=== PATIENT | female | born 1995 | race Caucasian/White ===

== ENCOUNTER 2017-08-27 12:02 | Emergency (ER) | payer BC, OTHER ==
[~2017-08-27] VITALS: Ht 165.1 cm; Wt 74.3 kg
[~2017-08-27 12:02] MED LIST: ALBUAER2 INH; CLR10 PO; SNG10 PO
[2017-08-27 12:16] VITALS: TEMP 36.8; Ht 165.1 cm; Wt 74.3 kg
[2017-08-27 13:04] LABS: HEMATOCRIT 31.7 % (37-47); MEAN CORPUSCULAR HEMOGLOBIN 29.1 pg (25-34); MEAN PLATELET VOLUME 11.9 fL (7.4-10.4); PLATELET COUNT 153 K/uL (130-400); RED BLOOD COUNT 3.82 M/uL (4.2-5.4); WHITE BLOOD COUNT 6.38 K/uL (4.8-10.8)
[2017-08-27 13:30] LABS: ALT/SGPT 16 U/L (12-78); BLOOD UREA NITROGEN 5 mg/dl (7-18); BUN/CREATININE RATIO 9.8 (10-20); CALCIUM 8.7 mg/dl (8.5-10.1); CARBON DIOXIDE 25 mmol/L (21-32); CHLORIDE 109 mmol/L (98-107); CREATININE 0.53 mg/dl (0.60-1.20); GLUCOSE 88 mg/dl (70-99); POTASSIUM 3.3 mmol/L (3.5-5.1); SODIUM 141 mmol/L (136-145)
[2017-08-27 13:33] LABS: ALB/GLOB RATIO 1.2 (0.9-2); ALKALINE PHOSPHATASE 93 U/L (45-117); AST/SGOT 14 U/L (15-37)
--- NOTE | 2017-08-27 13:58 | DIAGNOSTIC IMAGING REPORT ---
TRANS VAG-FEMALE PELVIS HISTORY: Pelvic pain Possible ectopic , HCG at 5000 COMPARISON: None. FINDINGS: Uterus: Midline location with maximum linear dimension of 11.9 cm. Endometrial stripe: 11 mm Right ovary: 4.5 cm maximum linear dimension with a 2.7 cm corpus luteum cyst. Normal vascular flow Left ovary: 3.4 cm maximum dimension with several follicular cysts. Normal vascular flow. Miscellaneous:Probable early intrauterine gestational sac. Probable early pole. Size is too small for dates or other evaluation. IMPRESSION: 1. Probable early intrauterine gestational sac. 2. Follow-up at a later date is recommended to confirm viability and heartbeat. 3. Bilateral ovarian follicular cysts as well as corpus luteum cyst. The above report was generated using voice recognition software. It may contain grammatical, syntax or spelling errors. Electronically signed by: Nathan White M.D. 08/27/2017 1:57 PM Dictated Date/Time: 08/27/2017 1:52 PM
--- NOTE | 2017-08-27 14:14 | History and Physical ---
History & Physical Date & Time of Service: Aug 27, 2017 at 12:59 Chief Complaint: Abdominal Pain Primary Care Physician: No Doctor, Assigned History of Present Illness Source: patient, family Patient is a 21 y/o at 5 weeks 3 days via LMP of 07/20/17 comes in left sided low abdominal pain that began yesterday evening and progressively got worse. She has had cramping over the past week and had a positive home test at home over the weekend. She denies any nausea/vomiting, fevers , chills or syncope. She was seen at [facility] this morning where a transvaginal US showed a normal sized uterus measuring 7.0 x 5.6 x 6.6 cm and a thickened endometrium at 2.6 cm. No intrauterine seen. A small amount of fluid in the cul de sac. The right ovary was normal size measuring 4.6 x 2.5 x 2.9 cm with a presumed corpus luteum measuring 2.2 cm. The left ovary was not visualized and no obvious left adnexal mass seen. Her beta HCG was 5481. She was then transferred here for further evaluation an treatment to the high suspicion of an ectopic . On arrival her pain is slightly worse and located in her left lower abdomen. Denies any bleeding at this time. Social History Smoking Status: Current Every Day Smoker Smokeless Tobacco Use: No Alcohol Use: occasionally Drug Use: none Marital Status: single Housing status: lives with family Occupational Status: employed Immunizations History of Influenza Vaccine: Unknown History of Tetanus Vaccine?: Unknown History of Pneumococcal: Unknown History of Hepatitis B Vaccine: Unknown Multi-Drug Resistant Organisms History of MDRO: No Allergies Coded Allergies: Macrolides (Unverified Allergy, Mild, 12/09/09) Penicillins (Unverified Allergy, Mild, 12/09/09) Amoxicillin (Unverified Allergy, Unknown, unk, 08/27/17) Home Medications No Active Prescriptions or Reported Meds Review of Systems Constitutional: No fever, No chills, No sweats, No weight loss, No weakness, No fatigue, No problem reported Respiratory: No cough, No sputum, No wheezing, No shortness of breath, No dyspnea on exertion, No dyspnea at rest, No hemoptysis, No problem reported Cardiovascular: No chest pain, No orthopnea, No PND, No edema, No claudication , No palpitations, No problem reported Abdomen: + pain (Left lower abdominal pain) Genitourinary - Female: + , No dysuria, No urinary frequency, No urinary urgency, No urinary incontinence, No urinary retention, No hematuria, No dysmenorrhea, No menorrhagia, No metrorrhagia, No rash, No vaginal bleeding, No vaginal discharge, No vaginal itching, No vulvodynia, No problem reported Neurologic: No memory loss, No paralysis, No weakness, No numbness/tingling, No vertigo, No balance problems, No problem reported Hematologic / Lymphatic: No abnormal bleeding/bruising, No clotting problems, No swollen lymph nodes, No night sweats, No problem reported Integumentary: No rash, No itch, No new/changing skin lesions, No color change , No bleeding, No problem reported Physical Exam Vital Signs Date Time Temp Pulse Resp B/P (MAP) Pulse Ox O2 Delivery O2 Flow Rate FiO2 08/27/17 12:17 83 08/27/17 12:16 36.8 90 18 123/97 99 Room Air General Appearance: WD/WN Head: normocephalic, atraumatic Respiratory/Chest: chest non-tender, lungs clear Cardiovascular: regular rate, rhythm Abdomen/GI: normal bowel sounds, soft, + tenderness (left lower abdominal pain , no gaurding or rebound) Extremities/Musculoskelatal: normal inspection Neurologic/Psych: alert, oriented x 3 Skin: normal color, warm/dry, no rash Diagnostics Laboratory Results Test 08/27/17 12:25 White Blood Count 6.38 Red Blood Count 3.82 Hemoglobin 11.1 Hematocrit 31.7 Mean Corpuscular Volume 83.0 Mean Corpuscular Hemoglobin 29.1 Mean Corpuscular Hemoglobin Concent 35.0 RDW Standard Deviation 37.1 RDW Coefficient of Variation 12.2 Platelet Count 153 Mean Platelet Volume 11.9 Sodium Level 141 Potassium Level 3.3 Chloride Level 109 Carbon Dioxide Level 25 Anion Gap 7.0 Blood Urea Nitrogen 5 Creatinine 0.53 Est Creatinine Clear Calc Drug Dose 166.6 Estimated GFR () > 150.0 Estimated GFR (Non- 133.8 BUN/Creatinine Ratio 9.8 Random Glucose 88 Calcium Level 8.7 Total Bilirubin 0.3 Aspartate Amino Transferase (AST) 14 Alanine Aminotransferase (ALT) 16 Alkaline Phosphatase 93 Total Protein 6.8 Albumin 3.7 Globulin 3.1 Albumin/Globulin Ratio 1.2 Human Chorionic Gonadotropin, Quant 4258 Diagnostic Radiology TRANS VAG-FEMALE PELVIS HISTORY: Pelvic pain Possible ectopic , HCG at 5000 COMPARISON: None. FINDINGS: Uterus: Midline location with maximum linear dimension of 11.9 cm. Endometrial stripe: 11 mm Right ovary: 4.5 cm maximum linear dimension with a 2.7 cm corpus luteum cyst. Normal vascular flow Left ovary: 3.4 cm maximum dimension with several follicular cysts. Normal vascular flow. Miscellaneous:Probable early intrauterine gestational sac. Probable early pole. Size is too small for dates or other evaluation. IMPRESSION: 1. Probable early intrauterine gestational sac. 2. Follow-up at a later date is recommended to confirm viability and heartbeat. 3. Bilateral ovarian follicular cysts as well as corpus luteum cyst. Impression Assessment and Plan (1) Abdominal pain (2) Early stage of Assessment & Plan: Ultrasound today showed early IUP will need to repeat ultrasound in 2 weeks for viability. Patient agreeable. Has an appointment with us in 2 days already scheduled. VTE Prophylaxis VTE Risk Assessment Done? Y/N: Yes Risk Level: Low Given or contraindicated: Treatment not indicated Social Service Consult None Apply Note Total Time: Critical Care 30 - 74 minutes Problem Qualifiers (1) Abdominal pain: Abdominal location: left lower quadrant Qualified Codes: R10.32 - Left lower quadrant pain
--- NOTE | 2017-08-27 14:18 | Discharge Instructions ---
Discharge Instructions Date of Service Aug 27, 2017. Admission Reason for Admission: Abdominal Pain Discharge Discharge Diagnosis / Problem: Early Discharge Goals Goal(s): Continuing OB care Activity Recommendations Activity Limitations: per Instructions/Follow-up section . Instructions / Follow-Up Instructions / Follow-Up ACTIVITY RECOMMENDATIONS: See Labor Sheet. SPECIAL CARE INSTRUCTIONS: Call Doctor if: * Severe cramping or pain. * Bleeding * Fever >100.4 degrees F * Pain not relieved by routine measures or pain medication ordered. FOLLOW UP VISIT: Patient is to be off of work today and tomorrow 08/27/17-08/28/17. Follow[facility]up Visit with:[facility] When: 08/29/17 Current Hospital Diet Patient's current hospital diet: Discharge Diet Recommended Diet: Regular Diet Pending Studies Studies pending at discharge: no Medical Emergencies . Who to Call and When: Medical Emergencies: If at any time you feel your situation is an emergency, please call 911 immediately. . Non-Emergent Contact Non-Emergency issues call your: Primary Care Provider, Process Manufacturing Engineer . . "Provider Documentation" section prepared by Ousmane Pemberton. . VTE Core Measure Inpt VTE Proph given/why not?: Treatment not indicated
[2017-08-27 15:30] VITALS: BP 106/58; PULSE 85; O2SAT 100
== END 2017-08-27 15:34 | disposition home or self-care (01) ==
LOC: EDBD 12:02 → C.EDA 12:05
DX: R10.32 Left lower quadrant pain (principal); O26.891 Other specified pregnancy related conditions, first trimester; O99.331 Smoking (tobacco) complicating pregnancy, first trimester; F17.200 Nicotine dependence, unspecified, uncomplicated; Z3A.01 Less than 8 weeks gestation of pregnancy

== ENCOUNTER 2023-12-26 11:49 | Inpatient (IN) ==
--- NOTE | 2023-12-26 12:17 | Emergency Department Note ---
Impression & Plan Depression with suicidal ideation, Hyperthyroidism, Thrombocytopenia, Leukocytopenia, unspecified ED Provider Note NAME: YAZ SANTANA AGE: 28 SEX: F : 1995 ARRIVES VIA: Walk-In INFORMANT: Patient, ED PROVIDER(S): Bala Davison DO CHIEF COMPLAINT: Mental health evaluation HPI: The patient is a 28-year-old female who presented to the emergency department for mental health evaluation. The patient has been having problems with depression and suicidal ideation for quite some time. These issues have seemed to have gotten much worse especially over the last few weeks. She lost primary custody of her child. She used to live with her boyfriend and has no current residence as she broke up with her boyfriend. She was living with her mother for short period of time but now that is no longer a viable option. The patient denies having any fever or chills. She does have a history of Graves' disease but is not taking any medications for this. The patient states that last evening she was contemplating hurting herself by jumping off of a merlin. The patient denies any recent drug or alcohol use. ROS: See above HPI for pertinent positives & negatives. A total of 10 systems reviewed and were otherwise negative. PAST MEDICAL HISTORY: See Below PAST SURGICAL HISTORY: See Below FAMILY HISTORY: See Below SOCIAL HISTORY: See Below HOME MEDICATIONS: See Below ALLERGIES: See Below VITALS: See Below PHYSICAL EXAMINATION: GENERAL: The patient is awake and alert. The patient is anxious and tearful. EYES: The conjunctivae are clear. The pupils are round and reactive. EARS, NOSE, MOUTH AND THROAT: The nose is without any evidence of any deformity. NECK: The neck is nontender and supple. RESPIRATORY: Normal respiratory effort is noted there is no evidence of wheezing rhonchi or rales CARDIOVASCULAR: Regular rate and rhythm noted there no murmurs rubs or gallops normal S1 normal S2. GASTROINTESTINAL: The abdomen is soft. Abdomen is nontender. MUSCULOSKELETAL/EXTREMITIES: There is no evidence of gross deformity full range of motion is noted in the hips and shoulders. SKIN: There is no obvious evidence of any rash. There are no petechiae, pallor or cyanosis noted. NEUROLOGIC: Patient is awake alert and oriented x3 strength is symmetric patellar reflexes are 2+ bilaterally PSYCH: The patient makes good eye contact mostly evaluation. Her affect is very flat. She is tearful at times. She still admitting to suicidal ideation with a plan to hurt herself. MEDICAL DECISION MAKING: The patient is a 28-year-old female who presented to the emergency department for mental health evaluation. The patient's been having many stressors recently and this culminated in the patient having suicidal ideation with a plan to hurt herself last evening. I discussed patient's laboratory results with her. She was medically cleared in the emergency department although she was found to have abnormalities with her thyroid function which does fit with her past medical history and her medication noncompliance. She was also found of thrombocytopenia and a low white blood cell count. I am unsure the cause of this. The patient does not have any infectious process as far as we can tell. She has no history of IV drug abuse. She may require further laboratory workup including tickborne testing as well as possible other viral testing. I discussed this with the patient. I also discussed this with the liaison from [facility] Further testing can be done from [facility] if needed. Ultimately the patient was excepted on [facility] for inpatient management. The patient was agreeable with this plan. I did sign the patient's 201. Triage Nursing notes reviewed. Prior medical records reviewed Vital Signs: reviewed and remarkable for tachycardia. Differential diagnosis: Mood disorder, infection, hypoglycemia, electrolyte abnormalities, cardiac sources, intracerebral event, toxicologic, trauma, neurologic, as well as other pathologies. ER treatment provided: See below Diagnostics interpreted by me: ECG: none Laboratory studies: As stated above and show below. Imaging studies: See below. Consultation(s): I discussed this patient's condition with the emergency department mental health manager rn case Past Med/Surg History Medical History Graves disease Social History Smoking Status: Current every day smoker Tobacco Type: Cigarettes Preferred Language: Djiboutian Feels Safe at Home: Yes Gender Identity: Female Allergies Allergies Allergy/AdvReac Type Severity Reaction Status Date / Time amoxicillin Allergy Intermediate RASH Verified 12/26/23 16:44 apple Allergy Intermediate GI SYMPTOMS Verified 12/26/23 16:44 erythromycin base Allergy Unknown RASH Verified 12/26/23 16:44 gluten Allergy Unknown patient Verified 12/26/23 16:44 has celiac disease Home Meds Home Medications Medication Instructions Recorded Confirmed Multivit/Min/Iron/Fol Ac/Pren 1 tab PO DAILY #0 tabs 04/20/18 ( Vitamin) methimazole 10 mg tablet mg 12/26/23 Previous Rx's Medication Instructions Recorded Nitrofurantoin Monohyd Macrocr 100 mg PO BID@0400,1600 #14 caps 04/20/18 (Nitrofurantoin Monohydrat) Results & Data (ED) Vital Signs Vital Signs - 24 hr 12/26/23 11:55 12/26/23 14:12 Temperature 36.3 C L Temperature Source Temporal Artery Scan Pulse Rate 116 H Pulse Rate [Finger] 114 H Respiratory Rate 20 18 Respiratory Effort / Characteristics Non-Labored Spontaneous Respiratory Depth Normal Blood Pressure 147/89 H Blood Pressure [Right Arm] 117/62 Blood Pressure Mean 108 Blood Pressure Mean [Right Arm] 80 Blood Pressure Position [Right Arm] Sitting Pulse Oximetry 100 98 Oxygen Delivery Method Room Air Room Air Sepsis Recent Fever Within 48 Hours No Sepsis New/Unexplained Change in Mental Status N/A Sepsis Action Taken by Nursing No Action Required Home Medications Current Medication List: was personally reviewed by me Laboratory Data Attestation: I reviewed the patient's lab results. 12/26/23 12:17 12/26/23 12:17 Lab Results 12/26/23 12/26/23 12/26/23 Range/Units 12:02 12:17 Unknown WBC 2.28 L (4.8-10.8) K/ul RBC 5.13 (4.20-5.40) M/uL Hgb 13.6 (12.0-16.0) g/dl Hct 39.8 (37.0-47.0) % MCV 77.6 L (80.0-100.0) fL MCH 26.5 (25.0-34.0) pg MCHC 34.2 (32.0-36.0) g/dL RDW Std Deviation 37.3 (36.4-46.3) fL RDW Coeff of Shirley 13.3 (11.5-14.5) % Plt Count 94 L (130-400) K/uL MPV 12.9 H (9.4-12.4) fL Immature Gran % (Auto) 0.4 % Neut % (Auto) 40.4 % Lymph % (Auto) 43.4 % [place] % (Auto) 13.2 % Eos % (Auto) 2.2 % Baso % (Auto) 0.4 % Neut # (Auto) 0.92 L* (1.40-6.50) K/uL Lymph # (Auto) 0.99 L (1.20-3.40) K/uL [place] # (Auto) 0.30 (0.11-0.59) K/uL Eos # (Auto) 0.05 (0.00-0.50) K/uL Baso # (Auto) 0.01 (0.00-0.20) K/uL Immature Gran # (Auto) 0.01 (0.01-0.20) K/uL Platelet Estimate Decreased L (Normal) Giant Platelets 1+ Tear Drop Cells 1+ Echinocytes 1+ Sodium 137 (136-145) mmol/L Potassium 4.0 (3.5-5.1) mmol/L Chloride 105 (98-107) mmol/L Carbon Dioxide 26 (21-32) mmol/L Anion Gap 6 (3-11) BUN 6 (6-23) mg/dl Creatinine 0.49 L (0.6-1.2) mg/dl Est Cr Clr Drug Dosing 142.1 ml/min Est GFR ( Amer) > 150.0 ml/min Est GFR (Non-Af Amer) 130.7 ml/min BUN/Creatinine Ratio 12.2 (10-20) Glucose 118 H (70-99(Fasting)) mg/dl Calcium 9.2 (8.6-10.3) mg/dl Total Bilirubin 0.3 (0.2-1.0) mg/dl AST 32 (13-39) U/L ALT 26 (7-52) U/L Alkaline Phosphatase 128 H (34-104) U/L Total Protein 7.0 (6.0-8.3) gm/dl Albumin 4.1 (3.4-5.0) gm/dl Globulin 2.9 (2.5-4.0) gm/dl Albumin/Globulin Ratio 1.4 (0.9-2) TSH < 0.010 L (0.300-4.500) uIu/ml Free T4 3.42 H (0.61-1.60) ng/dl HCG, Qual Negative (Negative) Urine Color Dark Yellow Urine Appearance Cloudy A (Clear) Urine pH 7.0 (4.5-7.5) Ur Specific Clemons 1.013 (1.000-1.030) Urine Protein Negative (Negative) Urine Glucose (UA) Negative (Negative) Urine Ketones Negative (Negative) Urine Blood 2+ H (Negative) Urine Nitrite Negative (Negative) Urine Bilirubin Negative (Negative) Urine Urobilinogen Negative (Negative) Ur Leukocyte Esterase Negative (Negative) Urine WBC (Auto) 5-10 H (0-5) /hpf Urine RBC (Auto) 0-4 (0-4) /hpf U Hyaline Cast (Auto) 1-5 (0-5) /lpf U Epithel Cells (Auto) >30 H (0-5) /lpf Urine Bacteria (Auto) Negative (Negative) Salicylates < 3.0 L (3.0-30) mg/dl Urine Opiates Screen Neg (Neg) Ur Methadone, Qual Neg (Neg) Acetaminophen < 3 L (10-30) ug/ml Urine Barbiturates Neg (Neg) Ur Phencyclidine (PCP) Neg (Neg) U Amphetamin/Meth Scrn Neg (Neg) MDMA (Ecstasy) Screen Neg (Neg) U Benzodiazepines Scrn Neg (Neg) Ur Cocaine Metabolite Neg (Neg) U Marijuana (THC) Screen Neg (Neg) Ethyl Alcohol mg/dL < 10.0 (<10.0) mg/dl SARS-CoV-2, RNA, NAAT NEGATIVE (NEGATIVE) Administered Medications Nicotine (Nicotine 14 Mg/24 Hr Patch) 14 mg TD QAM KAYLA Stop: 01/25/24 13:29 Last Admin: 12/26/23 13:33 Dose: 14 mg Documented By: CC Discharge Plan Visit Data Chief Complaint: Mental Health Evaluation Stated Complaint: [facility] ED Provider: Bala Davison Discharge Problem: Depression with suicidal ideation, Hyperthyroidism, Thrombocytopenia, Leukocytopenia, unspecified Patient Disposition: Transfer Behavioral Health Fac Forms Stand Alone Forms: My [facility], Suicide Prevention Resources Prescriptions Prescriptions: No Action Multivit/Min/Iron/Fol Ac/Pren ( Vitamin) tablet 1 tab PO DAILY Qty: 0 Nitrofurantoin Monohyd Macrocr (Nitrofurantoin Monohydrat) 100 MG capsule 100 mg PO BID@0400,1600 Qty: 14 0RF methimazole 10 mg tablet Referrals Referrals: PCP,NO [Primary Care Provider] - Discharge Problem: Leukocytopenia, unspecified Qualifiers: Leukopenia type: unspecified Qualified Code(s): D72.819 - Decreased white blood cell count, unspecified
[2023-12-26 12:55] LABS: Appearance Urine Cloudy (Clear); Bacteria Urine Automated Negative (Negative); Bilirubin Urine Negative (Negative); Blood Urine 2+ (Negative); Color Urine Dark Yellow; Epithelial Cell Urine Auto >30 /lpf (0-5); Glucose Urine UA Negative (Negative); Ketones Urine Negative (Negative); Leukocyte Esterase Urine Negative (Negative); Nitrite Urine Negative (Negative); Protein Urine Negative (Negative); RBC Urine Automated 0-4 /hpf (0-4); Specific Gravity Urine 1.013 (1.000-1.030); Urobilinogen Urine Negative (Negative)
[2023-12-26 13:24] LABS: Pregnancy Test, Serum Negative (Negative)
[2023-12-26 13:25] LABS: Amphetamines+Metham, Urine Neg (Neg); Barbiturates, Urine Neg (Neg); Benzodiazepine, Urine Neg (Neg); Cocaine, Urine Neg (Neg); MDMA (Ecstacy), Urine Neg (Neg); Marijuana, Urine Neg (Neg); Methadone, Urine Neg (Neg); Opiate, Urine Neg (Neg); Phencyclidine, Urine Neg (Neg)
[2023-12-26 13:27] LABS: Alanine Aminotransferase 26 U/L (7-52); Albumin Globulin Ratio 1.4 (0.9-2); Albumin Level 4.1 gm/dl (3.4-5.0); Alkaline Phosphatase 128 U/L (34-104); Anion Gap 6 (3-11); Aspartate Aminotransferase 32 U/L (13-39); BUN Creatinine Ratio 12.2 (10-20); Bilirubin,Total 0.3 mg/dl (0.2-1.0); Blood Urea Nitrogen 6 mg/dl (6-23); Calcium 9.2 mg/dl (8.6-10.3); Carbon Dioxide 26 mmol/L (21-32); Chloride 105 mmol/L (98-107); Creatinine Clr Calc Pharmacy 142.1 ml/min; Est GFR (African American) > 150.0 ml/min; Est GFR (Non-African American) 130.7 ml/min; Globulin 2.9 gm/dl (2.5-4.0); Glucose 118 mg/dl (70-99(Fasting)); Sodium 137 mmol/L (136-145)
[2023-12-26 13:33] LABS: Acetaminophen < 3 ug/ml (10-30); Salicylate < 3.0 mg/dl (3.0-30)
[2023-12-26] MEDS: NICOTINE 14 MG/24 HR PATCH TD SCH (13:33)
[2023-12-26 13:43] LABS: Thyroid Stimulating Hormone < 0.010 uIu/ml (0.300-4.500)
[2023-12-26 13:44] LABS: Hematocrit (blood only) 39.8 % (37.0-47.0); Hemoglobin 13.6 g/dl (12.0-16.0); Mean Corpuscular Hemoglobin 26.5 pg (25.0-34.0); Mean Corpuscular Hgb Conc 34.2 g/dL (32.0-36.0); Mean Corpuscular Volume 77.6 fL (80.0-100.0); Mean Platelet Volume 12.9 fL (9.4-12.4); Platelet Count 94 K/uL (130-400); RDW Coefficient of Variation 13.3 % (11.5-14.5); RDW Standard Deviation 37.3 fL (36.4-46.3); Red Blood Count 5.13 M/uL (4.20-5.40); White Blood Count 2.28 K/ul (4.8-10.8)
[2023-12-26 14:00] LABS: Echinocytes 1+; Giant Platelets 1+; Platelet Estimate Decreased (Normal); Tear Drop Cells 1+
[2023-12-26 14:12] LABS: Basophils # (auto) 0.01 K/uL (0.00-0.20); Basophils % (auto) 0.4 %; Eosinophils # (auto) 0.05 K/uL (0.00-0.50); Eosinophils % (auto) 2.2 %; Immature Granulocytes # (auto) 0.01 K/uL (0.01-0.20); Immature Granulocytes % (auto) 0.4 %; Lymphocytes # (auto) 0.99 K/uL (1.20-3.40); Lymphocytes % (auto) 43.4 %; Monocytes % (auto) 13.2 %; Neutrophils # (auto) 0.92 K/uL (1.40-6.50); Neutrophils % (auto) 40.4 %
[2023-12-26 14:19] LABS: T4 Free Thyroxine 3.42 ng/dl (0.61-1.60)
[2023-12-26] MEDS ORDERED: ACETAMINOPHEN 325 MG TAB PO PRN (18:05)
[2023-12-26] MEDS ORDERED: BISMUTH SUBSALICYLATE LIQD 236 ML PO PRN (18:05)
[2023-12-26] MEDS ORDERED: hydrOXYzine HCl 25 MG TAB PO PRN ×2 (18:05)
[2023-12-26] MEDS ORDERED: SODIUM CHLORIDE 0.65% NA SOLN 45 ML (OCEAN) PRN (18:05)
[2023-12-26] MEDS ORDERED: ALUMINUM/MAGNESIUM SUSP 30 ML UDC PO PRN (18:05)
[2023-12-26] MEDS ORDERED: MAGNESIUM HYDROXIDE SUSP 30 ML UDC PO PRN (18:05)
[2023-12-26] MEDS: NICOTINE POLACRILEX 2 MG GUM MT PRN (18:29)
--- OUTSIDE RECORDS SUMMARY | 2023-12-27 12:11 | External Medical Summary | Summary of Care ---
Author Name Unknown Organization [facility] Address [address] [place] [address] Phone [phone] Care Team Providers Care Customer Success Manager Name Role Phone Unavailable Primary Care Provider Unavailabl e Encounter Details Date Type Department Care Team (Late st Contact Info) Description 11/08/2023 7:20 AM EST Telemedicine [facility] [address] [place] [address] Hansa Lee MD [address] [place] [address] Upper respiratory tract infection, unspecified type*; Hyperthyroidism; Other allergic rhinitis; Mild persistent asthma without complication; Tobacco use; Celiac disease Allergies Active Allergy Reactions Criticality Noted Date Comments Amoxicillin 10/13/2001 rash Erythromycin Base 09/02/2007 vomiting Gluten 10/27/2013 Pt has celiac disease documented as of this encounter (statuses as of 11/08/2023) Medications Medication Sig Dispensed Refills Start Date End Date Status Plus 27-1 MG Oral TabletIndications:Enc ounter for supervision of other normal in first trimester Take 1 Tablet by mouth in the morning. 100 Tablet 3 04/16/2023 Active Iron-Vitamin C 65-125 MG Oral Tablet (Vitron C)Indications:Antepar maty anemia complicating Take 1 Tablet by mouth in the morning and 1 Tablet before bedtime. 60 Tablet 6 04/16/2023 Active methIMAzole 10 MG Oral Tablet (Tapazole)Indications :Hyperthyroidism 2.5 tab daily 75 Tablet 5 07/09/2023 Active documented as of this encounter (statuses as of 11/08/2023) Active Problems Problem Noted Date Diagnosed Date Hyperthyroidism 05/21/2023 Cigarette nicotine dependence without complicati on 05/21/2023 Tobacco use 05/16/2023 Asthma, mild persistent 01/22/2011 Other allergic rhinitis 08/26/2002 Overview: ICD-10 update of inactive term Polycystic ovaries documented as of this encounter (statuses as of 11/08/2023) Resolved Problems Problem Noted Date Diagnosed Date Resolved Date Family history of autism 04/17/2023 Overview: Patient's daughter is on the autism spectrum. Also has macrocephaly and a heart murmur (no structural defect). Patient states that they never pursued genetic testing. Declines genetic counseling at this time. Last Assessment & Plan: Patient aware to reach out if she desires genetic counseling referral. Antepartum anemia complicating 04/16/2023 05/03/2023 Overview: Hgb 9.7 at NOB. Recommend iron BID Last Assessment & Plan: CONSIDERATIONS: Severe maternal anemia (hemoglobin levels below 6 to 7 g/dl) is associated with oligohydramnios, cerebral vasodilation, delivery, miscarriage, growth restriction, nonreassuring heart rate patterns, and stillbirth. There is also an increased risk for maternal . RECOMMENDATIONS: If hemoglobin is below 11 g/dl during first and third trimesters or less than10.5 g/dL in 2nd trimester, we recommend anemia studies to assess serum ferritin, iron, iron binding capacity, transferritin saturation, and hemoglobin electrophoresis. If iron-deficiency anemia is confirmed, then we recommend iron supplementation with oral (preferred) or parenteral therapy (if recommended by blood conservation program after oral therapy has failed) as indicated to keep hemoglobin level above 11 g/dl during . Oral iron should be taken with orange juice. If anemia studies do not reflect iron deficiency anemia we recommend checking TSH, B12 and folate levels and referral to a surgical technology instructor. If hemoglobin levels are below 8 g/dl, we recommend Maternal Medicine ultrasound for growth every 4 weeks after 24 weeks. Consider a blood transfusion if hemoglobin levels fall below 6 g/dL. ([employer] Bulletin Number 95, May,). Consider Venofer transfusions if patient labs supportive of iron deficiency anemia with dosing of 300 mg IV weekly x 3 weeks Health counseling 04/12/2023 05/16/2023 Overview: Problem Action Taken Date entered Entered by Date resolved Smoking/tobacco abuse Smoking Education 04/12/2023 Tsering Eagle RN 04/12/2023 Problem Action Taken Date entered Entered by Date resolved 1st trimester education Education given 04/12/2023 Tsering Eagle RN 04/12/2023 History of depression 04/12/2023 05/03/2023 Overview: Denies current anxiety or depression symptoms. Last Assessment & Plan: ANXIETY AND DEPRESSION CONSIDERATIONS: Untreated maternal anxiety and depression may be associated with an increased risk of multiple poor obstetrical outcomes including miscarriages, low weight, and delivery. Women with a history of anxiety or depression are at risk for recurrence both during and/or the period. Studies of first-trimester SSRI exposure do not demonstrate consistent data to support an increased risk for structural malformations. Anti-anxiety or depression medications have been associated with transient effects (withdrawal syndrome). RECOMMENDATIONS: Mental illness can and should be treated during when the benefits of treatment outweigh potential risks. Referral to behavioral health services as clinically indicated. History of marijuana use 04/12/2023 Overview: Last use 3 years ago. Medical marijuana for post depression. Patient denies any illicit drug use. History of genetic counseling 04/12/2023 05/03/2023 Overview: First complicated by positive Quad screen for Trisomy 21. Baby did not have disorder. Hyperthyroidism affecting pr egnancy in first trimester 04/12/2023 05/03/2023 Overview: Graves' disease diagnosed 2 years ago ~ [id number] Following with Endo in past. Last seen 1 year ago, 2021. D/c tapazole with KOP as advised previously not to take in . Also stopped atenolol. Patient was referred back to Endo on 04/12, but was put on a waiting list for an appointment. OB reached out to patient's PCP for management. Latest Reference Range & Units 04/13/23 14:36 TSH 0.27 - 4.20 uIU/mL <0.01 (L) T4, Free 0.9 - 1.7 ng/dL 4.5 (H) T3, Free 2.5 - 4.3 pg/mL 17.5 (H) Last Assessment & Plan: CONSIDERATIONS: Discussed with the patient that uncontrolled maternal hyperthyroidism is associated with both maternal and risks. Women may experience hyperthyroid symptoms, develop cardiac arrhythmias or osteoporosis, or experience thyroid storm. The risk to the fetus includes miscarriage, premature delivery, preeclampsia, growth restriction and demise. These risks are modifiable with thyroid-replacement medications. In patients with tachycardia from hyperthyroidism, a Beta ciaran (e.g., atenolol or metoprolol) is often used which may potentially be associated with development of growth restriction. Reviewed that the risks to both the woman and the developing fetus are modifiable with thioamide treatment. Discussed that Propylthiouracil (PTU) and Methimazole have been used safely in women with hyperthyroidism for many years. The most serious maternal side effect of these drugs is agranulocytosis which occurs in 0.1-0.4% of cases. As these drugs do cross the placenta, they may result in hypothyroidism and goiter formation. RECOMMENDATIONS: Recommend that patient s hyperthyroidism be managed during by auto transmission specialist. Recommend PTU or Methimazole in first trimester and Methimazole in second and third trimester for the management of hyperthyroidism. To balance the rare risks of hepatotoxicity (associated with Propylthiouracil (PTU) ) and methimazole embryopathy (associated with aplasia cutis and esophageal or choanal atresia), the [place] [employer] and the [place] [employer] recommend treating hyperthyroidism with Propylthiouracil (PTU) in the first trimester and switching to methimazole in the second trimester. The [employer] states that either thioamide is a safe option to treat women with overt hyperthyroidism. Recommend Maternal Medicine ultrasound for anatomy at 19-20 weeks and for growth and goiter check at 28-30 weeks. She should continue to have growth assessments with Maternal Medicine while she is clinically hyperthyroid. Twice weekly NSTs are indicated if hyperthyroidism remains suboptimally controlled. Pediatricians should be notified at time of delivery regarding maternal diagnosis and treatment complicated by tob acco use in first trimester 04/12/2023 05/03/2023 Overview: Currently smoking 1/2 ppd, decreased from 1 ppd prior to . Trying to cut back; encouraged continued cessation efforts. Last Assessment & Plan: Strongly advised patient to stop using tobacco. Discussed that tobacco use is associated with increased risks of spontaneous miscarriage, labor and delivery, premature rupture of membranes, growth restriction, stillbirth, SIDS postnatally, and placental abnormalities such as previa or abruption. For patients who report smoking 1 pack per day of cigarettes or greater during , we recommend Maternal Medicine ultrasound for growth at 28-30 weeks. Advised patient that the most successful method to quit smoking is if those around you do not smoke as well. Discussed that smoking by anyone in the household is a risk factor for asthma, more frequent respiratory and ear infections, and SIDS. Recommend not allowing anyone to smoke inside the home or car, even with the windows down. Discussed that if family members are unable to quit smoking, they should wash hands and change clothes after smoking outside and before holding the baby. Supervision of normal 04/12/2023 05/03/2023 Family history of diabetes mellitus 05/12/2021 05/21/2023 B12 deficiency 03/26/2018 05/21/2023 Iron deficiency anemia 03/26/201805/12 Need for rubella vaccination 02/27/2018 04/24/2018 Supervision of normal first , antepartum 02/27/2018 05/12/2021 Overview: Plans to deliver at [facility] Antepartum anemia complicating 01/31/2018 04/24/2018 Overview: 01/31/2018 - hgb 9.2. Fe supplements Rx. Check hgb in 6 weeks. Suggest stopping 1-2 Mtn Dew daily. 03/13/18 Reviewed high iron diet. Repeat H/H 8.9 Advised to increase to two times daily Hematology consult pending 04/01 - seeing hemonc - IV infusions Abnormal quad screen 12/23/2017 018 Overview: Panorama/Vinay Low Risk. Advance directive declined by patient 12/23/2017 05/12/2021 Overview: No, Advance Directive brochure offered, patient declined. Tobacco smoking complicating 10/02/2017 04/24/2018 Overview: Cutting back, hoping to quit Reduced from 1-2 ppd to 1-5/day. , normal first 10/01/201702/03 Celiac sprue 06/04/2012 05/21/2023 Asthma affecting in first trimester 04/27/20 10 05/03/2023 Overview: Patient states that she has not required an inhaler since 7th grade. Does report some increased shortness of breath with activity in ; denies wheezing or chest tightness. Last Assessment & Plan: CONSIDERATIONS: Asthma symptoms may improve, worsen or remain unchanged in severity in . Asthma is generally managed the same in as in the non- patient, as asthma-control medications are considered safe in . If asthma is well-controlled with medications prior to , it is recommended to continue the same medication regimen during . A patient should seek medical care immediately if an asthma flare does not respond to therapy. Mild and well-controlled moderate asthma can be associated with excellent maternal and outcomes. Severe and poorly controlled asthma may be associated with increased morbidity and mortality. Asthma management includes monitoring of lung function with pulmonary function testing (when indicated), avoidance of triggers (such as tobacco smoke, mold, dust mite exposure, animal dander and cockroaches), and a step-care approach to pharmacologic therapy based on the severity of the patient's asthma. RECOMMENDATIONS: Inhaled corticosteroids are the mainstay of therapy for all patients except those with intermittent asthma. o If patients are routinely requiring rescue inhaler (such as albuterol, Ventolin, ProAir, Atrovent, or Proventil) use more than twice weekly, we recommend adding a low-dose inhaled corticosteroid. [Pulmicort (budesonide) is preferred to use in .] o If patients are routinely requiring rescue inhaler use daily, we recommend adding a combined low-dose inhaled corticosteroid/long-acting beta-agonist [such as Advair (fluticasone/salmeterol) or Symbicort (budesonide/formoterol)] or a medium dose inhaled corticosteroid. o Patient should discuss these treatment options with her primary OB provider or PCP. Typically, patients do not need stress dose steroids as long as they continue their usual dose perioperatively (or during labor) and do not have primary renal failure or other problems with the pituitary axis. Medications such as prostaglandin F2a (including Hemabate), ergonovine, and indomethacin (in patients who are aspirin allergic) should be used with caution. Patients with moderate or severe persistent asthma should have Maternal- Medicine ultrasound for anatomy at 19-20 weeks. surveillance with growth ultrasounds and non-stress tests should be considered starting at 32 weeks. Other chest pain 09/11/2002 05/12/2021 Asthma, allergic 08/26/2002 04/27/2010 documented as of this encounter (statuses as of 11/08/2023) Immunizations Name Administration Dates Next Due HPV Vaccine, 4-Valent 08/10/2009,10/21/2008,04/2008 Seasonal Influenza Intranasal 08/09/2008, 006 Seasonal Influenza, Split, I IV3, With Preserve, Inj 08/10/2009,09/02/2007 TDAP (age 10 and older)(Boostrix) 02/27/2018 TDAP (age 11 and older)(Adacel) 12/28/2010 Varicella Vaccine (Chicken Pox) 12/28/2010 documented as of this encounter Social History Tobacco Use Types Packs/Day Years Used Date Smoking Tobacco: Every Day Cigarettes 0.5 Smokeless Tobacco: Never Comments:1/2 ppd - trying to cut back Alcohol Use Standard Drinks/Week Comments Not Currently 0 (1 standard drink = 0.6 oz pur e alcohol) once in a while PHQ-2 Answer Date Recorded PHQ Adult Total Score 0 05/12/2021 Hunger Vital Sign Answer Date Recorded Within the past 12 months, y ou worried that your food would run out before you got the money to buy more. Never true 03/11/20 23 Within the past 12 months, t he food you bought just didn't last and you didn't have money to get more. Never true 03/11/2023 [place] Depression Scale Answer Date Recorded [place] Depression Scale Total 3 04/12/2023 The thought of harming myself has occurred to me . Never 04/12/2023 Sex and Gender Information Value Date Recorded Sex Assigned at Female 03/12/2023 1:38 PM EDT Gender Identity Female 03/12/2023 1:38 PM EDT Sexual Orientation Straight 03/12/2023 1: 38 PM EDT Job Start Date Occupation Industry Not on file Not on file Not on file documented as of this encounter Progress Notes * Hansa Lee MD - 11/08/2023 7:26 AM EST Subjective Suni Bocanegra is a 28 year old female. No chief complaint on file. HPI: Patient location: HOME. I was in a hospital or clinic location. After connecting through [employer],patient was verified with two unique identifiers. 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 Methods to assure confidentiality were taken. Patient acknowledged consent and understanding of pr ivacy and security of the Telemedicine visit. The patient agreed to participate. Here to discuss about Achy, fever on Fri , sat and since then no fever Some sinus congestion , cough with drainage Getting much better Smoking Hx of asthma but no recent use of inhaler Denies wheezing, SOB, tightness Negative home covid tests 3 times Hyperthyroidism, taking med, f/u with endo Known celiac ds PMH: Patient Active Problem List Diagnosis Code Other allergic rhinitis J30.89 Polycystic ovaries E28.2 Asthma, mild persistent J45.30 Tobacco use Z72.0 Hyperthyroidism E05.90 Cigarette nicotine dependence without complication F17.210 Current Outpatient Medications Medication Sig Dispense Refill Plus 27-1 MG Oral Tablet Take 1 Tablet by mouth in the morning. 100 Tablet 3 Iron-Vitamin C 65-125 MG Oral Tablet (Vitron C) Take 1 Tablet by mouth in the morning and 1 Tablet before bedtime. 60 Tablet 6 methIMAzole 10 MG Oral Tablet (Tapazole) 2.5 tab daily 75 Tablet 5 No current facility-administered medications for this visit. Past Medical History: Diagnosis Date Allergic rhinitis due to other allergen Asthma, allergic no inhaler since 7th grade B12 deficiency 03/26/2018 Celiac sprue 06/04/2012 Cigarette nicotine dependence without complication 05/21/2023 Family history of diabetes mellitus 05/12/2021 Graves disease 2019 Heart murmur Required antibiotics for dental work Hyperthyroidism 05/21/2023 Lump or mass in breast 03/04/2007 sono done/abcess left Polycystic ovaries depression 2018 Tobacco use 05/16/2023 Varicella without complication 02/03/1996 Past Surgical History: Procedure Laterality Date COLONOSCOPY, DIAGNOSTIC (RECTUM) 03/12/2013 COLONOSCOPY FLEXIBLE PROXIMAL DIAGNOSTIC performed by Amarjit Flaherty DO at [facility]: normal EGD, FLEXIBLE, W/BIOPSY 06/2012 celiac on tissue bx's INFORMATION age 1 tubes in both ears REMOVE TONSILS & ADENOIDS, AGE 12+ 11-28-08 Review of patient's allergies indicates: Allergen Reactions Amoxicillin rash Erythromycin Base vomiting Gluten Pt has celiac disease Family History Problem Relation Age of Onset No Known Problems Mother Stroke Father 55 No Known Problems Sister No Known Problems Sister No Known Problems Brother No Known Problems Brother Cancer Grandmother (Maternal) lung ca- Diabetes Grandmother (Maternal) Thyroid Disorder Grandmother (Maternal) hypothyroid No Known Problems Grandfather (Maternal) no contact Diabetes Grandmother (Paternal) Breast Cancer Grandmother (Paternal) Diabetes Grandfather (Paternal) Lung cancer Grandfather (Paternal) Stroke Grandfather (Paternal) Diabetes Uncle (Unspecified) Other (Other) Other no hx of breast, ovarian, endometrial, colon cancers Autism spectrum disorder Daughter Heart murmur Daughter Other (macrocephaly) Daughter Family Status Relation Status Mo Alive Fa Alive Sis Alive Sis Alive Bro Alive Bro Alive MGMA MGFA Alive PGMA PGFA UNCLE (Not Specified) Other Other Renetta Alive Social History Socioeconomic History Marital status: Significant Other Spouse name: Not on file Number of children: Not on file Years of education: Not on file Highest education level: Not on file Occupational History 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 none since Sexual activity: Yes Partners: Male Other Topics Concern Service Not Asked Blood Transfusions Not Asked Caffeine Concern Not Asked Occupational Exposure Not Asked Hobby Hazards Not Asked Sleep Concern Not Asked Stress Concern Not Asked Weight Concern Not Asked Special Diet Yes Comment: Gluten Free Back Care Not Asked Exercise Not Asked Bike Helmet Not Asked Seat Belt Not Asked Self-Exams Not Asked Social History Narrative Environmental History: (copy into Historical Social documentation tab) Home construction: Trailer Heating system: oil heat Dampness: yes Pet:yes: dog Feathers: no Mattress covered: no Carpet in bedroom: yes Air conditioning: yes Indoor smoke: yes Insects seen in home :no Occupational/daycare triggers: yes: cold weather Social Determinants of Health Financial Resource Strain: Not on file Food Insecurity: No Food Insecurity (03/11/2023) Hunger Vital Sign Worried About Running Out of Food in the Last Year: Never true Ran Out of Food in the Last Year: Never true Transportation Needs: Not on file Physical Activity: Not on file Stress: Not on file Social Connections: Not on file Intimate Partner Violence: Not on file Housing Stability: Not on file Review of Systems Constitutional: Positive for activity change (improving) and fatigue. Negative for appetite change,chills, diaphoresis, fever and unexpected weight change. HENT: Positive for congestion and postnasal drip. Negative for ear pain, rhinorrhea, sinus pressure, sinus pain, sneezing, sore throat and tinnitus. Respiratory: Positive for cough. Negative for chest tightness, shortness of breath and wheezing. Cardiovascular: Negative for chest pain, palpitations and leg swelling. Gastrointestinal: Negative for abdominal distention, abdominal pain, diarrhea, nausea and vomiting. Allergic/Immunologic: Positive for environmental allergies. Neurological: Negative for dizziness, light-headedness and headaches. Psychiatric/Behavioral: Negative for agitation, behavioral problems and dysphoric mood. Objective There were no vitals taken for this visit. Physical Exam Constitutional: General: She is not in acute distress. Appearance: Normal appearance. She is normal weight. She is not ill-appearing, toxic-appearing or diaphoretic. HENT: Head: Normocephalic and atraumatic. Nose: Congestion present. Eyes: Extraocular Movements: Extraocular movements intact. Pulmonary: Effort: Pulmonary effort is normal. No respiratory distress. Musculoskeletal: Cervical back: Normal range of motion. Neurological: Mental Status: She is alert and oriented to person, place, and time. Psychiatric: Behavior: Behavior normal. ASSESSMENT/PLAN: Upper respiratory tract infection, unspecified type (Primary) - RETURN TO WORK OR SCHOOL Hyperthyroidism Other allergic rhinitis Mild persistent asthma without complication Tobacco use Celiac disease Faxed work note Cont meds Ok to use OTC for sinus congestion Hansa Lee MD documented in this encounter Plan of Treatment Upcoming Encounters Date Type Department Care Team (Late st Contact Info) Description 03/06/2024 3:10 PM EDT Telemedicine Endocrinology, [place] [address], [place] [id number] Pepper Ambrosio MD [address], [place] [id number] Health Maintenance Due Date Last Done Comments DISCUSS TOBACCO CESSATION (REFER TO SMARTSET #[id number]) 1993 COVID-19 Vaccine (#1) 04/02/1994 Pneumococcal Vaccine: Pediatrics (0 to 5 Years) and At-Risk Patients (6 to 64 Years) (1 - PCV) 1999 Depression Screening 05/12/2022 05/12/2021 Influenza Vaccine (FLU shot) (#1) 2023 08/10/2009, 08/09/2008, 09/02/2007, Additional history exists HPV/Co-Test 2023 Cervical Cancer Screening 04/12/2026 Pap Smear 04/12/2026 04/12/2023, 08/05, 08/29/2017, Additional history exists DTaP,Tdap,and Td Vaccines (7 - Td or Tdap) 02/28/2028 02/27/2018, 12/28/2010, 11/22/2004, Additional history exists Hepatitis B Completed 05/14/1994, 12/05, 1993 MENINGOCOCCAL (MENACTRA/MENVEO) Aged Out 10/10/2005 No longer eligible based on patient's age to complete this topic GARDASIL-HPV IMMUNIZATION SERIES Completed 08/10/2009, 10/21/2008, 08/09/2008 documented as of this encounter Medical Devices Not on filedocumented as of this encounter Visit Diagnoses Diagnosis Upper respiratory tract infection, unspecified type- Primary Hyperthyroidism Thyrotoxicosis without mention of goiter or other cause, without mention of thyrotoxic crisis or storm Other allergic rhinitis Mild persistent asthma without complication Unspecified asthma Tobacco use Tobacco use disorder Celiac disease documented in this encounter
--- OUTSIDE RECORDS SUMMARY | 2023-12-27 12:11 | External Medical Summary | Summary of Care ---
Author Name Unknown Organization [facility] Address [address] [place] [address] Phone [phone] Care Team Providers Care Customs And Immigration Officer Name Role Phone Unavailable Primary Care Provider Unavailabl e Encounter Details Date Type Department Care Team Description 07/09/2023 [facility] Endocrinology, [place] [address] [place] [address] Pepper Ambrosio MD [address] [place] [address] Graves disease*; Hyperthyroidism Allergies Active Allergy Reactions Severity Noted Date Comments Amoxicillin 10/13/2001 rash Erythromycin Base 09/02/2007 vomiting Gluten 10/27/2013 Pt has celiac disease documented as of this encounter (statuses as of 07/09/2023) Medications Medication Sig Dispensed Refills Start Date End Date Status Plus 27-1 MG Oral TabletIndications: Encounter for supervision of other normal in first trimester Take 1 Tablet by mouth in the morning. 100 Tablet 3 04/16/2023 Active Iron-Vitamin C 65-125 MG Oral Tablet (Vitron C)Indications:Ante anemia complicating Take 1 Tablet by mouth in the morning and 1 Tablet before bedtime. 60 Tablet 6 04/16/2023 Active methIMAzole 10 MG Oral Tablet (Tapazole)Indicati ons:Hyperthyroidis m 2.5 tab daily 75 Tablet 5 07/09/2023 Active methIMAzole 10 MG Oral Tablet (Tapazole)Indicati ons:Hyperthyroidis m 2.5 tab daily 75 Tablet 5 05/28/2023 07/09/2023 Discontinued (Refill) documented as of this encounter (statuses as of 07/09/2023) Active Problems Problem Noted Date Hyperthyroidism 05/21/2023 Cigarette nicotine dependence without co mplication 05/21/2023 Tobacco use 05/16/2023 Asthma, mild persistent 01/22/2011 Other allergic rhinitis 08/26/2002 Overview: ICD-10 update of inactive term Polycystic ovaries documented as of this encounter (statuses as of 07/09/2023) Resolved Problems Problem Noted Date Resolved Date Family history of autism 04/17/2023 023 Overview: Patient's daughter is on the autism spectrum. Also has macrocephaly and a heart murmur (no structural defect). Patient states that they never pursued genetic testing. Declines genetic counseling at this time. Last Assessment & Plan: Patient aware to reach out if she desires genetic counseling referral. Antepartum anemia complicating 023 05/03/2023 Overview: Hgb 9.7 at NOB. Recommend [...] and folate levels and referral to a telephone appointment clerk. If hemoglobin levels are below 8 g/dl, we recommend Maternal Medicine ultrasound for growth every 4 weeks after 24 weeks. Consider a blood transfusion if hemoglobin levels fall below 6 g/dL. ([employer] Associate Practice Bulletin Number 95, May,). Consider Venofer [...] clinically indicated. History of marijuana use 04/12/2023 023 Overview: Last use 3 years ago. Medical marijuana for post depression. Patient denies any illicit drug use. History of genetic counseling 04/12/2023 Overview: First complicated by positive Quad screen for Trisomy 21. Baby did not have disorder. [facility]thy[facility] 04/12/2023 05/03/2023 Overview: Graves' disease diagnosed 2 years ago ~ [id number] Following with Endo in past. Last seen [...] patient s hyperthyroidism be managed during by provider enrollment specialist. Recommend PTU or Methimazole in first trimester and Methimazole in second and third trimester for the management of hyperthyroidism. To balance the rare risks of hepatotoxicity (associated with Propylthiouracil (PTU) ) and methimazole embryopathy (associated with aplasia cutis and esophageal or choanal atresia), the [place] [employer] and the [place] Association of Clinical Endocrinologists recommend treating hyperthyroidism with Propylthiouracil (PTU) in the first trimester and switching to methimazole in the second trimester. The [place] [employer] and Gynecologists states that [...] regarding maternal diagnosis and treatment complicated by tobacco use in first imester 04/12/2023 05/03/2023 Overview: Currently smoking 1/2 ppd, [...] B12 deficiency 03/26/2018 05/21/2023 Iron deficiency anemia 03/26/2018 Need for rubella vaccination 02/27/2018 Supervision of normal first , antepartu m 02/27/2018 05/12/2021 Overview: Plans to deliver at [facility] Antepartum anemia complicating 018 04/24/2018 Overview: 01/31/2018 - hgb 9.2. Fe supplements Rx. Check hgb in 6 weeks. Suggest stopping 1-2 Mtn Dew daily. 03/13/18 Reviewed high iron diet. Repeat H/H 8.9 Advised to increase to two times daily Hematology consult pending 04/01 - seeing hemonc - IV infusions Abnormal quad screen 12/23/2017 04/24/2018 Overview: Panorama/Vinay Low Risk. Advance directive declined by patient 12/23/2017 05/12/2021 Overview: No, Advance Directive brochure offered, patient declined. Tobacco smoking complicating 04/24/2018 Overview: Cutting back, hoping to quit Reduced from 1-2 ppd to 1-5/day. , normal first 10/01/2017 02/28/20 18 Celiac sprue 06/04/2012 05/21/2023 Asthma affecting in first trimester 05/03/2023 Overview: Patient states that she has [...] as of this encounter (statuses as of 07/09/2023) Immunizations Name Administration Dates Next Due HPV [...] pur e alcohol) once in a while Food Insecurity Answer Date Recorded Within the past 12 months, y ou worried that your food would run out before you got money to buy more. Never true 03/11/2023 Within the past 12 months, t he food you bought just didn't last and you didn't have money to get more. Never true 03/11/2023 Sex Assigned at Date Recorded Female 03/12/2023 1:38 PM E DT Job Start Date Occupation Industry Not on file Not on file Not on file documented as of this encounter Progress Notes * Pepper Ambrosio MD - 07/09/2023 3:04 PM EDT Images from the original note were not included. Patient location: HOME. I was not in a hospital or clinic location. After connecting through [email or web address], patient was verified with two unique identifiers. Patient (or authorized legal digital sales representative) was then informed that this was a Telemedicine visit and being conducted confidentially over secure lines. Methods to assure confidentiality were taken. Patient acknowledged consent and understanding of privacy and security of the Telemedicine visit. The patient agreed to participate. Follow up: 27 year old female seen for the following: Graves disease 04/29/2023 - first visit with me, last office visit, she was 11 weeks . HPI Patient has history of Graves disease diagnosed in May of 2021. She was seen by Dr. Sotelo in May of 2021. After that she has lost follow-up. She has been taking methimazole since then. She is stopped taking methimazole since she learned that she is , restarted it on April 26, 2023, taking 30 mg of methimazole daily. Unfortunately she had misscarriage in 04/2023. She has been taking methimazole 2.5 mg daily since 05/2023. She ran out prescription about a week ago, skipped dose since then. She has bene gaining weight. Had 1 episode of anxiety with palpitations last week, otherwise feeling well. She is active smoker. She is planning another . She has a family history of thyroid disease, with a maternal grandmother with thyroid disease, and mom and dad have hypothyroidism. She denies head or neck irradiation. MEDICATIONS: Current Outpatient Medications Medication Instructions hydrocortisone 2.5 % cream Topical, TID(AM/NOON/HS), To affected area. Iron-Vitamin C 65-125 MG Oral Tablet (Vitron C) 1 Tablet, Oral, BID(AM/PM) methIMAzole 10 MG Oral Tablet (Tapazole) 3 pills or 30 mg in the am daily (started 20mg 08/2021, increased to 30mg 04/2022) Plus 27-1 MG Oral Tablet 1 Tablet, Oral, Daily(AM) PHYSICAL EXAMINATION: There were no vitals taken for this visit. LABS AND IMAGING TSH Results: Lab Results Component Value Date/Time TSH - [facility] <0.01 (L) 05/27/2023 03:56 PM TSH - [facility] <0.01 (L) 05/06/2023 11:28 AM TSH - [facility] <0.01 (L) 04/13/2023 02:36 PM TSH - [facility] 1.36 09/13/2016 03:16 PM TSH - [facility] 1.35 11/21/2012 11:55 AM TSH - [facility] 1.49 05/28/2012 11:55 AM ASSESSMENT AND PLAN: ICD-10-CM 1. Graves disease E05.00 2. Hyperthyroidism E05.90 Continue methimazole to 25 mg daily Check TSH/free T4/free T3 now and every 6 weeks, orders placed, for 6 months Discussed side effects of methimazole in detail. Methimazole is very well tolerated, rare side effects includes 1. rash, 2. Elevation in liver enzymes ( goes back to to normal on stopping methimazole). We monitor Liver function tests intermittently if you are on high dose of methimazole. 3. Super rare side effects - agranulocytosis - drop in your white cell count - if you ever have fever sore throat - not getting better in 3 days, let me know we can check your white cell count - if this is normal, you continue your medicine and if it is low when you are sick - we stop methimazole. Discussed APONTE / thyroidectomy, she is smoker, APONTE may not be good option for her, she does not haveGED. She wants to go with ATD for now. Discussed avoiding until thyroid labs are under control. Advised to let me know if michael is so that I can switch her to PTU. RTC in 3 months Plan TSH with Free T4 if indicated T3, Free methIMAzole 10 MG Oral Tablet (Tapazole) Pepper Ambrosio MD Endocrinology, [address] [address] documented in this encounter Plan of Treatment Scheduled Orders Name Type Priority Associated Diagnoses Orde r Schedule TSH WITH FREE T4 IF INDICATED Lab Routine Hyperthyroidism Every 6 Weeks for 4 Occurrences starting 07/09/2023 until 07/09/2024 T3, FREE Lab Routine Hyperthyroidism Every 6 Weeks for 4 Occurrences starting 07/09/2023 until 07/09/2024 Health Maintenance Due Date Last Done Comments DISCUSS TOBACCO CESSATION (REFER TO SMARTSET #3912) 1993 COVID-19 Vaccine (#1) 04/02/1994 Pneumococcal Vaccine: Pediatrics (0 to 5 Years) and At-Risk Patients (6 to 64 Years) (1 - PCV) 1999 Depression Screening, Annual for Pts 12 and Over 05/12/2022 05/12/2021 Influenza Vaccine (FLU shot) (#1) 2023 08/10/2009, 08/09/2008, 09/02/2007, Additional history exists Pap Smear 04/12/2026 04/12/2023, 08/05, 08/29/2017, Additional history exists DTaP,Tdap,and Td Vaccines (7 - Td or Tdap) 02/28/2028 02/27/2018, 12/28/2010, 11/22/2004, Additional history exists Hepatitis B Completed 05/14/1994, 12/05, 1993 MENINGOCOCCAL (MENACTRA/MENVEO) Aged Out 10/10/2005 No longer eligible based on patient's age to complete this topic GARDASIL-HPV IMMUNIZATION SERIES Completed 08/10/2009, 10/21/2008, 08/09/2008 Hepatitis C Screening Completed 04/13/2023 , 04/13/2023, 04/13/2023 documented as of this encounter Medical Devices Not on filedocumented as of this encounter Visit Diagnoses Diagnosis Graves disease- Primary Toxic diffuse goiter without mention of thyrotoxic crisis or storm Hyperthyroidism Thyrotoxicosis without mention of goiter or other cause, without mention of thyrotoxic crisis or storm documented in this encounter
--- OUTSIDE RECORDS SUMMARY | 2023-12-27 12:11 | External Medical Summary | Summary of Care ---
Author Name Unknown Organization [facility] Address [address] [place] [address] Phone [phone] Care Team Providers Care Disability Examiner Name Role Phone Unavailable Primary Care Provider Unavailabl e Encounter Details Date Type Department Care Team (Late st Contact Info) Description 10/11/2023 3:[address] [facility] [place] [address] [place] [address] Pepper Ambrosio MD [address] [place] [address] Hyperthyroidism*; Graves disease Allergies Active Allergy Reactions Criticality Noted Date Comments Amoxicillin 10/13/2001 rash Erythromycin Base 09/02/2007 vomiting Gluten 10/27/2013 Pt has celiac disease documented as of this encounter (statuses as of 10/11/2023) Medications Medication Sig Dispensed Refills Start Date [...] as of this encounter (statuses as of 10/11/2023) Active Problems Problem Noted Date Diagnosed Date Hyperthyroidism 05/21/2023 Cigarette nicotine dependence without complicati on 05/21/2023 Tobacco use 05/16/2023 Asthma, mild persistent 01/22/2011 Other allergic rhinitis 08/26/2002 Overview: ICD-10 update of inactive term Polycystic ovaries documented as of this encounter (statuses as of 10/11/2023) Resolved Problems Problem Noted Date Diagnosed Date [...] and folate levels and referral to a environmental services floor tech. If hemoglobin levels are below 8 g/dl, we recommend Maternal Medicine ultrasound for growth every 4 weeks after 24 weeks. Consider a blood transfusion if hemoglobin levels fall below 6 g/dL. ([employer] Att[employer] Practice Bulletin Number 95, May,). Consider Venofer [...] Graves' disease diagnosed 2 years ago ~ [phone] Following with Endo in past. Last seen [...] patient s hyperthyroidism be managed during by hvac specialist. Recommend PTU or Methimazole in first trimester and Methimazole in second and third trimester for the management of hyperthyroidism. To balance the rare risks of hepatotoxicity (associated with Propylthiouracil (PTU) ) and methimazole embryopathy (associated with aplasia cutis and esophageal or choanal atresia), the [place] [employer] Association and the [place] Association of Clinical Endocrinologists recommend treating hyperthyroidism with Propylthiouracil (PTU) in the first trimester and switching to methimazole in the second trimester. The [employer]st[employer]ians and Gynecologists states that [...] 02/27/2018 05/12/2021 Overview: Plans to deliver at [facility] Antepartum anemia complicating 01/31/2018 04/24/2018 Overview: 01/31/2018 [...] 06/04/2012 05/21/2023 Asthma affecting in first trimester 04/27/2005/03/2023 Overview: Patient states that she has not [...] as of this encounter (statuses as of 10/11/2023) Immunizations Name Administration Dates Next Due HPV Vaccine, 4-Valent 08/10/2009,10/21/2008,100 04/2008 Seasonal Influenza Intranasal 08/09/2008, 006 Seasonal Influenza, [...] money to get more. Never true 03/11/2023 [place] Depression Scale Answer Date Recorded [place] Depression Scale Total 3 04/12/2023 The thought [...] Progress Notes * Pepper Ambrosio MD - 10/11/2023 3:08 PM EST Images from the original note were not included. Patient location: HOME. I was not in a hospital or clinic location. After connecting through [employer], patient was verified with two unique identifiers. Patient (or authorized legal payable representative) was then informed that this was a Telemedicine visit and being conducted confidentially over secure lines. Methods to assure confidentiality were taken. Patient acknowledged consent and understanding of privacy and security of the Telemedicine visit. The patient agreed to participate. Follow up: 28 year old female seen for the following: Graves disease Patient has history of Graves disease diagnosed in May of 2021. She was seen by Dr. Sotelo in May of 2021. After that she had lost follow-up. 04/29/2023 - first visit with me, last office visit, she was 11 weeks . Had miscarriage the same month. Today she is taking methimazole 25 mg, 2.5 tablets of 10 mg methimazole daily. She has bene gaining weight. Complaining of facial swelling. Denies palpitations, verify anxiety episodes. Periods are coming every month. She is active smoker. She has a family history of thyroid disease, with a maternal grandmother with thyroid disease, and mom and dad have hypothyroidism. She denies head or neck irradiation. PHYSICAL EXAMINATION: There were no vitals taken for this visit. LABS AND IMAGING TSH Results: Lab Results Component Value Date/Time TSH - [facility] <0.01 (L) 07/18/2023 02:39 PM TSH - [facility] <0.01 (L) 05/27/2023 03:56 PM TSH - [facility] <0.01 (L) 05/06/2023 11:28 AM TSH - [facility] 1.36 09/13/2016 03:16 PM TSH - [facility] 1.35 11/21/2012 11:55 AM TSH - [facility] 1.49 05/28/2012 11:55 AM ASSESSMENT AND PLAN: ICD-10-CM 1. Hyperthyroidism E05.90 2. Graves disease E05.00 Due for blood work, she will get it done in this week. Continue methimazole 25 mg daily Discussed APONTE / thyroidectomy, she is smoker, APONTE may not be good option for her, she does not haveGED. She wants to go with ATD for now. Discussed avoiding until thyroid labs are under control. Advised to let me know if michael is so that I can switch her to PTU. RTC in 3 months Blood work 1 week before next appointment Pepper Ambrosio MD Endocrinology, [address] was going on with the thyroid [facility] [address] Her documented in this encounter Plan of Treatment Scheduled Orders Name Type Priority Associated Diagnoses Orde r Schedule T4, FREE Lab Routine Hyperthyroidism Graves disease Expected: 01/10/2024 (Approximate), Expires: 10/11/2024 TSH Lab Routine Hyperthyroidism Graves disease Expected: 01/10/2024 (Approximate), Expires: 10/11/2024 HEPATIC FUNCTION PANEL Lab Routine Hyperthyroidism Graves disease Expected: 01/10/2024 (Approximate), Expires: 10/11/2024 T3, FREE Lab Routine Hyperthyroidism Graves disease Expected: 01/10/2024 (Approximate), Expires: 10/11/2024 Health Maintenance Due Date Last Done Comments DISCUSS TOBACCO CESSATION (REFER TO SMARTSET #0684) 1993 COVID-19 Vaccine (#1) 04/02/1994 Pneumococcal Vaccine: [...] as of this encounter Visit Diagnoses Diagnosis Hyperthyroidism- Primary Thyrotoxicosis without mention of goiter or other cause, without mention of thyrotoxic crisis or storm Graves disease Toxic diffuse goiter without mention of thyrotoxic crisis or storm documented in this encounter
--- OUTSIDE RECORDS SUMMARY | 2023-12-27 12:11 | External Medical Summary ---
Author Name Unknown Address Unknown Organization [id number]:LABORATORY [facility] - [address] [facility] [address] Laboratory Report Ordering Provider Test Date Status SOUMYAROSSI 07/18/2023 14:39:57 Final Observation Date Value Abnormality Reference (Units ) Status T3, Free 07/18/2023 14:39:57 4.5 Above high normal 2. 5-4.3 (pg/mL) Final Performing Location LABORATORY [facility] - [address] [facility] [address]
--- OUTSIDE RECORDS SUMMARY | 2023-12-27 12:11 | External Medical Summary ---
Author Name Unknown Address Unknown Organization [id number]:[facility] [place] [address] [place] [address] [place] [address] Laboratory Report Ordering Provider Test Date Status ENID DOOLEY 07/18/2023 14:39:57 Final Observation Date Value Abnormality Reference (Units ) Status TSH 07/18/2023 14:39:57 <0.01 Below low normal 0.2 7-4.20 (uIU/mL) Final Performing Location [facility] [place] [address] [place] [address]
--- OUTSIDE RECORDS SUMMARY | 2023-12-27 12:11 | External Medical Summary | Summary of Care ---
Author Name Unknown Organization [facility] Address [address] [place] [address] Phone [phone] Care Team Providers Care Health And Human Performance Professor Name Role Phone Unavailable Primary Care Provider Unavailabl e Reason for Visit * Reason Comments Outpatient Testing Encounter Details Date Type Department Care Team Description 07/18/2023 Laboratory Laboratory [place] Tawanna Henao [address] [address] [place], [facility] [address] [address] Hyperthyroidism Allergies Active Allergy Reactions Severity Noted Date Comments Amoxicillin 10/13/2001 rash Erythromycin Base 09/02/2007 vomiting Gluten 10/27/2013 Pt has celiac disease documented as of this encounter (statuses as of 07/18/2023) Medications Medication Sig Dispensed Refills Start Date [...] as of this encounter (statuses as of 07/18/2023) Active Problems Problem Noted Date Hyperthyroidism 05/21/2023 Cigarette nicotine dependence without co mplication 05/21/2023 Tobacco use 05/16/2023 Asthma, mild persistent 01/22/2011 Other allergic rhinitis 08/26/2002 Overview: ICD-10 update of inactive term Polycystic ovaries documented as of this encounter (statuses as of 07/18/2023) Resolved Problems Problem Noted Date Resolved Date [...] and folate levels and referral to a shank cementer hand. If hemoglobin levels are below 8 g/dl, we recommend Maternal Medicine ultrasound for growth every 4 weeks after 24 weeks. Consider a blood transfusion if hemoglobin levels fall below 6 g/dL. ([employer] Practice Bulletin Number 95, May,). Consider Venofer [...] have disorder. [facility] 04/12/2023 05/03/2023 Overview: Graves' disease diagnosed 2 years ago ~ [id number] Following with Endo in past. Last seen [...] patient s hyperthyroidism be managed during by pheresis specialist. Recommend PTU or Methimazole in first trimester and Methimazole in second and third trimester for the management of hyperthyroidism. To balance the rare risks of hepatotoxicity (associated with Propylthiouracil (PTU) ) and methimazole embryopathy (associated with aplasia cutis and esophageal or choanal atresia), the [place] [employer] Association and the [place] Association of Clinical Endocrinologists recommend treating hyperthyroidism with Propylthiouracil (PTU) in the first trimester and switching to methimazole in the second trimester. The [employer] Obst[employer]ians and Gynecologists states that [...] treatment complicated by tobacco use in first tr imester 04/12/2023 05/03/2023 Overview: Currently smoking 1/2 [...] 02/27/2018 05/12/2021 Overview: Plans to deliver at [facility] Antepartum anemia complicating 018 04/24/2018 Overview: [...] brochure offered, patient declined. Tobacco smoking complicating 7 04/24/2018 Overview: Cutting back, hoping to quit [...] as of this encounter (statuses as of 07/18/2023) Immunizations Name Administration Dates Next Due HPV [...] on file documented as of this encounter Plan of Treatment Upcoming Encounters Date Type Specialty Care Team Description 10/11/2023 Telemedicine Endocrinology Pepper Ambrosio MD [address] [place] [address] Pending Results Name Type Priority Associated Diagnoses Date /Time TSH WITH FREE T4 IF INDICATED Lab Routine Hyperthyroidism 07/18/2023 2:39 PM EDT T3, FREE Lab Routine Hyperthyroidism 07/18/2023 2:39 PM EDT Health Maintenance Due Date Last Done Comments DISCUSS TOBACCO CESSATION (REFER TO SMARTSET #3291) 1993 COVID-19 Vaccine (#1) 04/02/1994 Pneumococcal Vaccine: [...] as of this encounter Visit Diagnoses Diagnosis Hyperthyroidism Thyrotoxicosis without mention of goiter or other cause, without mention of thyrotoxic crisis or storm documented in this encounter
--- OUTSIDE RECORDS SUMMARY | 2023-12-27 12:11 | External Medical Summary ---
Author Name Unknown Address Unknown Organization [id number]:LABORATORY [facility] - [address] [place] [address] Laboratory Report Ordering Provider Test Date Status ENID DOOLEY 07/18/2023 14:39:57 Final Observation Date Value Abnormality Reference (Units ) Status T4, Free 07/18/2023 14:39:57 1.2 0.9-1.7 (n g/dL) Final Performing Location [facility] [address] [facility] [address]
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
--- NOTE | 2023-12-27 16:08 | Consultation ---
Date of Consultation December 27, 2023 Assessment & Plan (1) Neutropenia: (2) Thrombocytopenia: Patient is a 28-year-old female with PMH Graves' disease, depression, anxiety seen in consultation for abnormal labs. 12/26/23: WBC: 2.28, H/H: 13/39, PLT: 94, ANC: 912, alk phos: 128, remaining LFTs WNL, initial Lyme screen negative. Anaplasma smear: No evidence of intra Sustol plasmic neutrophilic inclusions to suggest anaplasmosis. Babesia smear: No evidence of red blood cell inclusions to suggest Babesia Further tickborne labs pending Patient has been afebrile CBC, CMP, peripheral smear, HIV in am Follow results of tickborne illness labs Monitor for fever and if would occur needs to be placed on neutropenic precautions (3) Graves disease: 12/26/23: TSH:<0.01, free T4: 3.4 Per outpatient review TSH <0.01 since 05/12/21. Free T4: 1.2 on 07/18/23. Follows with [facility] endocrinology, Dr Pepper Ambrosio. Was to be on methimazole 25mg daily, however patient has not been taking Known medication noncompliance Plan to restart methimazole 25mg daily. Will need outpatient follow up with bariatric physician (4) Depression with suicidal ideation: Ad[facility] Psychiatry on board and managing DVT Prophylaxis Ambulation Does not follows with PCP for routine care. Will need to get established with PCP Pt was seen and care coordinated with Dr Spears. See addendum I spent a total of 70 minutes reviewing notes, outpatient records, labs, medication, coordinating, documenting and providing care for this patient excluding time spent in the performance of separately billed services. Thank you for this consultation. We will follow the patient with you during their hospital stay. You can reach a member of the [facility] Hospitalist Team 27/05 via [facility] Supervising Physician Co-Signing Physician Notes Pt was seen and examined agreed with Rosa SMALL exam, assessment and plan. hospitalist medicine was consulted due to leukopenia ( low WBC). Pt denies any symptoms. lab done showed WBC 2.2, Platelet 94, Lyme screen negative, anaplasmosis smear showed no evidence for inclusion bodies, TSH < 0.01. will repeat CBC, check peripheral smear, HIV( Pt agreed to screen for HIV). Methimazole can cause abnormal neutropenia. I doubt the abnormal lab is due to Methimazole since pt has not been taking the methimazole for months. Will resume methimazole. Will continue follow pt during the course of the hospital stay. MD Regan History of Present Illness Requesting Physician: Dr Zuniga Reason for Consultation: abnormal labs Attending Physician: Carri Zuniga MD History of Present Illness Patient is a 28-year-old female with PMH Graves' disease, depression, anxiety seen in consultation for abnormal labs. History obtained from patient, inpatient and outpatient chart review. Patient currently [facility] for depression and SI and being managed by psychiatry. Admission labs patient noted to have neutropenia, thrombocytopenia and abnormal TSH. Patient states that she has not taken methimazole since summer. She has not told endocrinology that she hasn't been taking medication. Patient reports since 2020 has had significant weight loss of over 150 pounds. Patient states initially diagnosed with Graves' disease in 2020. She admits med noncompliance intermittently for years. Follows with [facility] endocrinology, Dr Pepper Ambrosio. Last televist on 10/11/23 in which was to be continued on methimazole 25mg daily and was to have follow up in 3 months. Per outpatient review TSH <0.01 since 05/12/21. Free T4: 1.2 on 07/18/23, 1.8 on 05/27/23 and 4.5 on 04/13/23. Patient states has not had any palpitations. She reports chronically feels hot and diaphoretic. Reports hair loss, intermittent loose stools. Reports does have anxiety but states has a lot of life stressors as well. Patient reports history tick bite 1 year ago and thinks removed 2-3 ticks within 1-2 hours after attachment. Denies any other known recent tick bites. 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 Patient reports used marijuana several years ago, otherwise denies drug use. Denies other medication, OTC medication or herbal medication use. Reports history of miscarriage 04/2023. Denies fever/chills, N/V, melena, hematochezia, epistaxis, MCCLELLAN, dizziness, syn cope, vision changes, neck pain, CP, SOB, cough, sore throat, rhinorrhea, abdominal pain, paresthesias, weakness, extremity edema, rashes, urinary symptoms. Allergies Allergy/AdvReac Type Severity Reaction Status Date / Time amoxicillin Allergy Intermediate RASH Verified 12/26/23 16:44 apple Allergy Intermediate GI SYMPTOMS Verified 12/26/23 16:44 erythromycin base Allergy Unknown RASH Verified 12/26/23 16:44 gluten Allergy Unknown patient Verified 12/26/23 16:44 has celiac disease Home Medications Medication Instructions Recorded Confirmed Type methimazole 10 mg tablet 25 mg PO DAILY 12/26/23 12/27/23 History Patient History Medical History Depression Graves disease Surgical History History of colonoscopy History of esophagogastroduodenoscopy (EGD) Social History Smoking Status: Current every day smoker Tobacco Type: Cigarettes Hx Alcohol Use: No Hx Substance Use: No Preferred Language: Tongan Communication Ability: Effective Compactor Driver Required: No Beliefs That Will Affect Care: None Feels Safe at Home: Yes Gender Identity: Female Assistive Devices: Denture - Upper and Denture - Lower Review of Systems Review of Systems: All systems reviewed & are unremarkable except as noted in HPI & below Physical Exam Physical Exam: General: no distress, thin female Head: normocephalic, atraumatic Eyes: conjunctiva non-injected, anicteric ENT: normal inspection external ears, nose, mucous membranes moist Neck: supple, trachea midline Lungs: clear, no respiratory distress, no wheezing/rhonchi/rales CV: RRR, no murmur, no pretibial edema Abd: normal BS, soft, non-tender Ext: no cyanosis, no calf tenderness Neuro: A&O x 3, no focal deficits noted, somewhat flat affect Skin: warm, dry Results & Data Vital Signs (Past 12 Hours) Vital Signs Temp Pulse Resp BP 12/27/23 06:39 97 H 125/67 12/27/23 06:38 36.5 C 89 18 118/68
--- NOTE | 2023-12-28 08:52 | Hospitalist Progress Note ---
Date of Service December 28, 2023 Assessment & Plan (1) Neutropenia: (2) Thrombocytopenia: (3) Graves disease: (4) Depression with suicidal ideation: Plan Patient is a 28-year-old female with PMH Graves' disease, depression, anxiety seen in consultation for new onset leukopenia and thrombocytopenia. Leukopenia Thrombocytopenia 12/26/23: WBC: 2.28, H/H: 13/39, PLT: 94, ANC: 912, alk phos: 128, remaining LFTs WNL, initial Lyme screen negative. Anaplasma smear: No evidence of intra Sustol plasmic neutrophilic inclusions to suggest anaplasmosis. Babesia smear: No evidence of red blood cell inclusions to suggest Babesia Further tickborne labs still pending Patient has been afebrile Pending peripheral smear, HIV testing Follow results of tickborne illness labs Monitor for fever and if would occur needs to be placed on neutropenic precautions Hematology consult placed for further recs. Does not follows with a PCP for routine care. Will need to get established with PCP on discharge. Graves disease 12/26/23: TSH:<0.01, free T4: 3.4 Per outpatient review TSH <0.01 since 05/12/21. Free T4: 1.2 on 07/18/23. Follows with [facility] endocrin[place], Dr Pepper Ambrosio. Was supposed tto be on met himazole 25mg daily, however patient has not been taking Known medication noncompliance Plan to restart methimazole 25mg daily. Will need outpatient follow up with snow blower Depression with suicidal ideation Admitted to behavioral unit Management per primary team, Psychiatry Diet: Gluten free CODE STATUS: Full code DVT Prophylaxis: Ambulation as tolerated Dispo: per primary team Thank you for this consultation. We will follow the patient with you during their hospital stay. You can reach a member of the [facility]05 via [employer] Admission and Anticipated Discharge Date Admission Date: December 26, 2023 Subjective Pt was seen in the psych unit in the early AM. Was sitting in the public area, reading. 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 Notes that she has had signifcant weight loss. This provider discussed with admitting team from the day prior, and they note that pt did not advise of this. Review of Systems Review of Systems: All systems reviewed & are unremarkable except as noted in Subjective Physical Exam Physical Exam: General: Alert, oriented. No acute distress Skin: No noted rashes or bruises Psych: Appropriate mood and affect Neuro: No gross deficits HEENT: NC/AT Chest: Nontender to palpation. CV: RRR Resp: Breath sounds clear bilaterally, no increased effort of breathing. Abdomen: Soft, nontender, nondistended Extremities: No edema in lower extremities bilaterally. Results & Data Results & Data Vital Signs (Past 12 Hours) Vital Signs Temp Pulse Resp BP 12/28/23 06:35 101 H 118/70 12/28/23 06:35 37 C 96 H 16 124/75
[2023-12-28] MEDS: ESCITALOPRAM OXALATE 10 MG TAB PO SCH (08:54)
[2023-12-28] MEDS: methIMAzole 5 MG TABLET PO SCH (08:54)
[2023-12-28 09:36] LABS: Alanine Aminotransferase 31 U/L (7-52); Albumin Globulin Ratio 1.6 (0.9-2); Albumin Level 4.2 gm/dl (3.4-5.0); Alkaline Phosphatase 123 U/L (34-104); Anion Gap 4 (3-11); Aspartate Aminotransferase 29 U/L (13-39); BUN Creatinine Ratio 25.6 (10-20); Bilirubin,Total 0.4 mg/dl (0.2-1.0); Blood Urea Nitrogen 11 mg/dl (6-23); Calcium 9.5 mg/dl (8.6-10.3); Carbon Dioxide 27 mmol/L (21-32); Chloride 107 mmol/L (98-107); Creatinine Clr Calc Pharmacy 159.3 ml/min; Est GFR (African American) > 150.0 ml/min; Est GFR (Non-African American) 136.5 ml/min; Globulin 2.7 gm/dl (2.5-4.0); Glucose 100 mg/dl (70-99(Fasting)); Potassium 4.2 mmol/L (3.5-5.1); Sodium 138 mmol/L (136-145); Total Protein 6.9 gm/dl (6.0-8.3)
[2023-12-28 09:39] LABS: Hematocrit (blood only) 39.7 % (37.0-47.0); Hemoglobin 13.6 g/dl (12.0-16.0); Mean Corpuscular Hemoglobin 26.4 pg (25.0-34.0); Mean Corpuscular Hgb Conc 34.3 g/dL (32.0-36.0); Mean Corpuscular Volume 76.9 fL (80.0-100.0); Mean Platelet Volume 12.9 fL (9.4-12.4); Platelet Count 102 K/uL (130-400); RDW Standard Deviation 36.2 fL (36.4-46.3); Red Blood Count 5.16 M/uL (4.20-5.40)
[2023-12-28 09:53] LABS: ALC (manual) 1.36 K/uL (1.2-3.4); ANC (manual) 1.39 K/uL (1.4-6.5); Giant Platelets 1+; Lymphocytes # (manual) 1.02 K/uL (1.2-3.4); Lymphocytes % (manual) 35 %; Monocytes # (manual) 0.15 K/uL (0.11-0.59); Monocytes % (manual) 5 %; Neutrophils # (manual) 1.39 K/uL (1.40-6.50); Neutrophils % (manual) 48 %; Reactive Lymphocytes # (manual) 0.35 K/uL; Reactive Lymphocytes % (manual) 12 %
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
[2023-12-29 08:17] LABS: Alanine Aminotransferase 30 U/L (7-52); Albumin Globulin Ratio 1.5 (0.9-2); Albumin Level 4.3 gm/dl (3.4-5.0); Alkaline Phosphatase 121 U/L (34-104); Anion Gap 4 (3-11); Aspartate Aminotransferase 27 U/L (13-39); BUN Creatinine Ratio 28.2 (10-20); Bilirubin,Total 0.4 mg/dl (0.2-1.0); Blood Urea Nitrogen 11 mg/dl (6-23); Calcium 9.7 mg/dl (8.6-10.3); Carbon Dioxide 27 mmol/L (21-32); Chloride 107 mmol/L (98-107); Creatinine Clr Calc Pharmacy 175.7 ml/min; Est GFR (African American) > 150.0 ml/min; Est GFR (Non-African American) 140.9 ml/min; Globulin 2.9 gm/dl (2.5-4.0); Glucose 85 mg/dl (70-99(Fasting)); Iron 81 mcg/dl (35-150); Potassium 4.6 mmol/L (3.5-5.1); Sodium 138 mmol/L (136-145); Total Iron Binding Cap Calc 329 mcg/dl (250-450); Total Protein 7.2 gm/dl (6.0-8.3); Transferrin (FE) Percent Satur 25 % (15-50); Unsaturated Iron Binding Cap 248 mcg/dl (155-355)
[2023-12-29 08:35] LABS: Ferritin 38.3 ng/ml (8-388)
--- NOTE | 2023-12-29 10:19 | Psychiatric Progress Note ---
Date of Service December 29, 2023 Impression / Recommendations Impression 28 yo female with hx of a prior episode of post depression presents with recurrent depression and intrusive SI in the context of recent break up, ongoing family concerns, financial stress, and untreated Grave's disease. She blames methimazole for her miscarriage in April. She was diagnosed with new onset neutropenia in the ED and tic borne illness panel is pending. 12/29/23: Patient seems to be doing a lot better. She is much more brighter and goal-directed. (1) Depression with suicidal ideation: (2) Hyperthyroidism: (3) Leukocytopenia, unspecified: Plan The patient was admitted to the [facility] ([facility] mental health unit) on q15 min checks (behavioral with suicide precautions) for safety. The patient will participate in group, recreational, and milieu therapies and will be offered additional individual and family sessions as clinically appropriate. Risks/benefits/alternatives reviewed re: antidepressants for the treatment of de pression and/or anxiety. The patient agreed to a trial of an SSRI and given past tolerability issues with unknown SSRI (probably sertraline as peripartum) agreed to low dose Lexapro. She is not sleeping well so although Wellbutrin may help with smoking cessation likely too activating for patient while still hyperthyroid. [facility] hospitalist service to review labs to determine need for formal c onsult re: Graves and neutropenia vs. f/u endocine (Dr. Pepito Ambrosio) after discharge, etc. If develops fever will place on neutropenic precautions and consult hospitalist. 12/28/23: We will continue with her current level of observation and precautions. I encouraged her to participate in our therapeutic milieu, keep going to groups and activities, maintain good hygiene, and try not to isolate. We will continue with Lexapro at 5 mg daily, but I plan to raise it to 10 mg by the time she leaves the hospital. I spoke with the therapist and we are going to try to set up a family meeting with her boyfriend for tomorrow. We also spent some time discussing some of the problems with the relationship between her and her boyfriend and how she was should have handled some of these things differently. We also talked more about her future. 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 12/29/23: If the family meeting goes well today, our plan is to move forward with the discharge soon. Tomorrow, we will work on discharge planning. We will continue with the antidepressant at the current dose with a plan to increase it at the time of discharge. I encouraged her to keep going to groups and activities and engage as much as possible. Overall, I spent a total of 39 minutes with this case, including review of chart, review of records, direct evaluation of the patient, counseling the patient, coordination with nursing, interdisciplinary staff meeting, risk assessment, and documentation. Inventory Assets Strengths: help seeking, employed Needs: therapist, improve coping Suicide Risk Level Suicide Risk Level: Low (q15 min observation checks) Risk Factors Assessment : Yes Do You Have Access To A Gun?: No Health Problems: Yes Substance Use Disorders: No Previous Attempt: No Previous Psychiatric Hospitalization: No Protective Factors Assessment Employed: Yes Supportive Family: No Interval History Identifying Information YAZ SANTANA is a 28-year-old F from [facility] and was admitted on 12/26/23 17:01 on a 201 voluntary commitment for SI with plan. Chief Complaint "I had some suicidal thoughts." Review of Systems Sleep Information Total Hours of Sleep: 6.5 Meal Information Percent Meal Consumed - Breakfast: 100 Percent Meal Consumed - Lunch: 75 Percent Meal Consumed - Dinner: 100 Subjective Subjective Today met with the patient, received nursing report, and reviewed her chart. We also had a multidisciplinary staff meeting to discuss her care. Yaz is in our hospital after she had been having some suicidal thoughts after having some significant stressors going on in her life. Staff report that the patient is describing mood at 8-9 out of 10 where 10 is the best it could ever be. She has been feeling more peaceful. She has been eating meals reliably and attending groups reliably. She has a meeting scheduled with her boyfriend at 10 AM this morning. When I met with the patient this morning, she said that she is excited to get out of the hospital soon. She has a daughter with special needs and is excited to be able to see her again. Last night, she said that she slept well and her appetite was good this morning for breakfast. She had a good call with her boyfriend in the evening. She says that she is tolerating her medication just fine so far. She denies any suicidal or homicidal thoughts. She denies any current medical issues. This morning, she described her mood with me today as "very good and peaceful." Physical Exam Psychiatric Patient was alert and cooperative. She was clean and well-groomed. Eye contact was good. Speech was normal. Mood was "very good and peaceful." Affect was bright. Thought process was logical and goal-directed. There was no evidence of any hallucinations or delusions. Patient denied any suicidal or homicidal thoughts. Memory was good. No abnormal movements were seen. Gait was normal. Insight and judgment are impaired. Vital Signs (Past 24 Hours) Last Vital Signs Temp 36.7 C 12/29/23 06:32 Pulse 96 H 12/29/23 06:34 Resp 16 12/29/23 06:32 BP 125/72 12/29/23 06:34 Pulse Ox 99 12/26/23 18:08 O2 Del Method Room Air 12/26/23 18:08 Results & Data ([facility]) Laboratory Results Laboratory Results - last 24 hr 12/29/23 07:32 Sodium 138 Potassium 4.6 Chloride 107 Carbon Dioxide 27 Anion Gap 4 BUN 11 Creatinine 0.39 L Est Cr Clr Drug Dosing 175.7 Est GFR ( Amer) > 150.0 Est GFR (Non-Af Amer) 140.9 BUN/Creatinine Ratio 28.2 H Glucose 85 Calcium 9.7 Iron 81 TIBC 329 Unsaturated IBC 248 Transferrin % Sat 25 Ferritin 38.3 Total Bilirubin 0.4 AST 27 ALT 30 Alkaline Phosphatase 121 H Total Protein 7.2 Albumin 4.3 Globulin 2.9 Albumin/Globulin Ratio 1.5 Current Inpatient Medications Current Inpatient Medications: Current Inpatient Medications Acetaminophen (Acetaminophen 325 Mg Tab) 650 mg PO Q4H PRN PRN Reason: Headache or Minor Fever Stop: 01/25/24 18:04 Al Hydrox/Mg Hydrox/Simethicone (Aluminum/Magnesium Susp 30 Ml Udc) 30 ml PO Q4H PRN PRN Reason: GI Upset Stop: 01/25/24 18:04 Bismuth Subsalicylate (Bismuth Subsalicylate Liqd 236 Ml) 15 ml PO PRN PRN PRN Reason: Loose Stool Stop: 01/25/24 18:04 Escitalopram Oxalate (Escitalopram Oxalate 10 Mg Tab) 5 mg PO QAM KAYLA Stop: 01/27/24 08:59 Last Admin: 12/29/23 08:47 Dose: 5 mg Hydroxyzine HCl (Hydroxyzine Hcl 25 Mg Tab) 50 mg PO HSZ PRN PRN Reason: Insomnia Stop: 01/25/24 18:04 Hydroxyzine HCl (Hydroxyzine Hcl 25 Mg Tab) 25 mg PO Q4H PRN PRN Reason: Anxiety Stop: 01/25/24 18:04 Magnesium Hydroxide (Magnesium Hydroxide Susp 30 Ml Udc) 30 ml PO DAILY PRN PRN Reason: Constipation Stop: 01/25/24 18:04 Methimazole (Methimazole 5 Mg Tablet) 25 mg PO DAILY KAYLA Stop: 01/27/24 08:59 Last Admin: 12/29/23 08:47 Dose: 25 mg Nicotine Polacrilex (Nicotine Polacrilex 2 Mg Gum) 2 piece MT PRN PRN PRN Reason: Nicotine Withdrawal Symptoms Stop: 01/25/24 18:04 Last Admin: 12/29/23 08:53 Dose: 2 piece Sodium Chloride (Sodium Chloride 0.65% Na Soln 45 Ml ([place])) 1 - 2 sprays NA PRN PRN PRN Reason: Nasal Dryness/Congestion Stop: 01/25/24 18:04 Mental Health & Subst Abuse Tx Therapist Name of Therapist: N/A Rubber Press Operator Name of Rubber Press Operator: N/A (3) Leukocytopenia, unspecified Leukopenia type: unspecified Qualified Code(s): D72.819 - Decreased white blood cell count, unspecified
[2023-12-29 11:20] LABS: Hemoglobin 13.8 g/dl (12.0-16.0); Mean Corpuscular Hemoglobin 26.2 pg (25.0-34.0); Mean Corpuscular Hgb Conc 34.5 g/dL (32.0-36.0); Mean Corpuscular Volume 75.9 fL (80.0-100.0); Mean Platelet Volume 13.6 fL (9.4-12.4); Platelet Count 109 K/uL (130-400); RDW Coefficient of Variation 12.7 % (11.5-14.5); RDW Standard Deviation 34.6 fL (36.4-46.3); Red Blood Count 5.27 M/uL (4.20-5.40); White Blood Count 3.37 K/ul (4.8-10.8)
[2023-12-29 11:21] LABS: ALC (manual) 1.62 K/uL (1.2-3.4); ANC (manual) 1.62 K/uL (1.4-6.5); Basophils # (manual) 0.03 K/uL (0-0.2); Basophils % (manual) 1 %; Eosinophils # (manual) 0.03 K/uL (0-0.50); Eosinophils % (manual) 1 %; Giant Platelets 1+; Lymphocytes # (manual) 1.01 K/uL (1.2-3.4); Lymphocytes % (manual) 30 %; Monocytes # (manual) 0.07 K/uL (0.11-0.59); Monocytes % (manual) 2 %; Neutrophils # (manual) 1.62 K/uL (1.40-6.50); Neutrophils % (manual) 48 %; Reactive Lymphocytes # (manual) 0.61 K/uL; Reactive Lymphocytes % (manual) 18 %
--- NOTE | 2023-12-29 12:38 | Hospitalist Progress Note ---
Date of Service December 29, 2023 Assessment & Plan (1) Neutropenia: (2) Thrombocytopenia: (3) Graves disease: (4) Depression with suicidal ideation: Plan Patient is a 28-year-old female with PMH Graves' disease, depression, anxiety seen in consultation for new onset leukopenia and thrombocytopenia. Leukopenia Thrombocytopenia 12/26/23: WBC: 2.28, H/H: 13/39, PLT: 94, ANC: 912, alk phos: 128, remaining LFTs WNL, initial Lyme screen negative. Anaplasma smear: No evidence of intra Sustol plasmic neutrophilic inclusions to suggest anaplasmosis. Babesia smear: No evidence of red blood cell inclusions to suggest Babesia Further tickborne labs still pending Patient has been afebrile Pending peripheral smear, HIV testing Follow results of tickborne illness labs Monitor for fever and if would occur needs to be placed on neutropenic precautions Hematology consult placed for further recs. -possible ITP -check iron, b12 and folate levels -also likely related to poor nutritional status [facility] consult placed- appreciate recs Does not follow with a PCP for routine care. Will need to get established with PCP on discharge. Graves disease 12/26/23: TSH:<0.01, free T4: 3.4 Per outpatient review TSH <0.01 since 05/12/21. Free T4: 1.2 on 07/18/23. Follows with [facility] endocrinology, Dr Pepper Ambrosio. Was supposed tto be on methimazole 25mg daily, however patient has not been taking Known medication noncompliance Plan to restart methimazole 25mg daily. Will need outpatient follow up with locksmith Depression with suicidal ideation Admitted to behavioral unit Management per primary team, Psychiatry Diet: Gluten free CODE STATUS: Full code DVT Prophylaxis: Ambulation as tolerated Dispo: per primary team Thank you for this consultation. We will follow the patient with you during their hospital stay. You can reach a member of the [facility] via [employer] Admission and Anticipated Discharge Date Admission Date: December 26, 2023 Subjective Pt was seen in the psych unit. Denied acute concerns. Review of Systems Review of Systems: All systems reviewed & are unremarkable except as noted in Subjective Physical Exam Physical Exam: General: Alert, oriented. No acute distress Skin: No noted rashes or bruises Psych: Appropriate mood and affect Neuro: No gross deficits HEENT: NC/AT Chest: Nontender to palpation. CV: RRR Resp: Breath sounds clear bilaterally, no increased effort of breathing. Abdomen: Soft, nontender, nondistended Extremities: No edema in lower extremities bilaterally. Results & Data Results & Data Vital Signs (Past 12 Hours) Vital Signs Temp Pulse Resp BP 12/29/23 06:34 96 H 125/72 12/29/23 06:32 36.7 C 91 H 16 128/78
--- NOTE | 2023-12-29 12:54 | Oncology Consultation ---
Date of Consultation December 29, 2023 Assessment & Plan (1) Thrombocytopenia: She has a mild thrombocytopenia with a platelet count of 100,000- 150,000/mcL. This may be ITP. At this point there is no bleeding or bruising. I will recommend checking vitamin B12, folate level as well as a peripheral smear. I am concerned about the patient's nutrition status, especially keeping in mind that she has poor mental health and has not been eating or drinking well over the last few months. Her hematological abnormalities may be a direct sequelae of her poor nutrition. (2) Leukocytopenia, unspecified: She has very mild leukopenia, on admission she had mild neutropenia however that is recovered. Again will recommend checking B12, folate level, iron indicis as well as a peripheral smear keeping in mind patient's poor nutritional status and poor mental health. Plan Hematology will continue to follow the patient make appropriate recommendations. At this point no other intervention is necessary. She has mild hematological abnormalities, which do not warrant invasive testing such as bone marrow biopsy. Thank you for this interesting hematological consult. History of Present Illness Reason for Consultation: Leukopenia, thrombocytopenia Attending Physician: Carri Zuniga MD History of Present Illness The patient is a very pleasant 28-year-old woman who has been admitted to behavioral health unit with concerns for her mental health. During this time her blood work was done which revealed leukopenia, which is mild along with mild thrombocytopenia. Her hemoglobin level has has absolutely been normal. The patient tells me that she has not been eating and drinking much since December 2023. Her mental health spiraled out of control after April 2023. Reports no active bleeding or bruising. Reports no fever or chills. Ports no nausea vomi ting. Her appetite is good, the patient is not losing weight. She is following with one of our endocrinology colleagues for hypothyroidism. She is currently on methimazole. No other recent medications. Her only other medication is Lexapro. She does not drink alcohol regularly, does not use any recreational drugs. Allergies Allergy/AdvReac Type Severity Reaction Status Date / Time amoxicillin Allergy Intermediate RASH Verified 12/26/23 16:44 apple Allergy Intermediate GI SYMPTOMS Verified 12/26/23 16:44 erythromycin base Allergy Unknown RASH Verified 12/26/23 16:44 gluten Allergy Unknown patient Verified 12/26/23 16:44 has celiac disease Home Medications Medication Instructions Recorded Confirmed Type methimazole 10 mg tablet 25 mg PO DAILY 12/26/23 12/27/23 History Patient History Medical History Depression Graves disease Surgical History History of colonoscopy History of esophagogastroduodenoscopy (EGD) Social History Smoking Status: Current every day smoker Tobacco Type: Cigarettes Hx Alcohol Use: No Hx Substance Use: No Preferred Language: Icelandic Communication Ability: Effective Bracelet Former Required: No Beliefs That Will Affect Care: None Feels Safe at Home: Yes Gender Identity: Female Assistive Devices: Denture - Upper and Denture - Lower Review of Systems Review of Systems: All systems reviewed & are unremarkable except as noted in HPI & below Constitutional: as per Subjective / HPI Eyes: as per Subjective / HPI Ear, Nose, Mouth, Throat: as per Subjective / HPI Respiratory: as per Subjective / HPI Cardiovascular: as per Subjective / HPI Gastrointestinal: as per Subjective / HPI Genitourinary: as per Subjective / HPI Musculoskeletal: as per Subjective / HPI Integumentary: as per Subjective / HPI Neurologic: as per Subjective / HPI Psychiatric: + suicidal ideation Endocrine: as per Subjective / HPI Physical Exam Constitutional: WD/WN, vitals as above Eyes: PERRL, conjunctivae normal, anicteric sclerae ENMT: external ear and nose normal, oropharynx normal Neck: trachea midline, no thyromegaly Respiratory: normal respiratory effort, lungs clear to auscultation Cardiovascular: RRR, no murmur, no edema Gastrointestinal (Abdomen): normal bowel sounds, soft, nontender, no hepatosplenomegaly Musculoskeletal: no cyanosis or clubbing, extremities motor strength 5/5 Skin: no rashes, warm and dry Neurologic: patellar DTR's 2+ bilat, sensation intact Results & Data Vital Signs (Past 12 Hours) Vital Signs Temp Pulse Resp BP 12/29/23 06:34 96 H 125/72 12/29/23 06:32 36.7 C 91 H 16 128/78 (2) Leukocytopenia, unspecified Leukopenia type: unspecified Qualified Code(s): D72.819 - Decreased white blood cell count, unspecified
[2023-12-30 07:09] LABS: Basophils # (auto) 0.01 K/uL (0.00-0.20); Basophils % (auto) 0.3 %; Eosinophils # (auto) 0.05 K/uL (0.00-0.50); Eosinophils % (auto) 1.7 %; Hematocrit (blood only) 40.8 % (37.0-47.0); Hemoglobin 14.2 g/dl (12.0-16.0); Immature Granulocytes # (auto) 0.01 K/uL (0.01-0.20); Immature Granulocytes % (auto) 0.3 %; Lymphocytes # (auto) 1.19 K/uL (1.20-3.40); Lymphocytes % (auto) 40.2 %; Mean Corpuscular Hemoglobin 26.4 pg (25.0-34.0); Mean Corpuscular Hgb Conc 34.8 g/dL (32.0-36.0); Mean Platelet Volume 13.1 fL (9.4-12.4); Monocytes # (auto) 0.18 K/uL (0.11-0.59); Monocytes % (auto) 6.1 %; Neutrophils # (auto) 1.52 K/uL (1.40-6.50); Neutrophils % (auto) 51.4 %; Platelet Count 114 K/uL (130-400); RDW Coefficient of Variation 12.5 % (11.5-14.5); RDW Standard Deviation 33.8 fL (36.4-46.3); Red Blood Count 5.37 M/uL (4.20-5.40); White Blood Count 2.96 K/ul (4.8-10.8)
[2023-12-30 07:33] LABS: Alanine Aminotransferase 30 U/L (7-52); Albumin Globulin Ratio 1.6 (0.9-2); Albumin Level 4.4 gm/dl (3.4-5.0); Alkaline Phosphatase 111 U/L (34-104); Anion Gap 5 (3-11); Aspartate Aminotransferase 25 U/L (13-39); BUN Creatinine Ratio 28.6 (10-20); Bilirubin,Total 0.4 mg/dl (0.2-1.0); Blood Urea Nitrogen 12 mg/dl (6-23); Calcium 9.9 mg/dl (8.6-10.3); Carbon Dioxide 27 mmol/L (21-32); Chloride 105 mmol/L (98-107); Creatinine Clr Calc Pharmacy 163.1 ml/min; Est GFR (African American) > 150.0 ml/min; Est GFR (Non-African American) 137.5 ml/min; Globulin 2.7 gm/dl (2.5-4.0); Glucose 83 mg/dl (70-99(Fasting)); Iron 81 mcg/dl (35-150); Magnesium 2.1 mg/dl (1.7-2.4); Sodium 137 mmol/L (136-145); Total Iron Binding Cap Calc 335 mcg/dl (250-450); Total Protein 7.1 gm/dl (6.0-8.3); Transferrin (FE) Percent Satur 24 % (15-50); Unsaturated Iron Binding Cap 254 mcg/dl (155-355)
[2023-12-30 07:42] LABS: Folate (Folic Acid),Ser orPlas 10.34 ng/ml (>5.38)
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
[2023-12-31 14:09] LABS: Ehrlichia chaff DNA Bld Negative (Negative)
--- NOTE | 2023-12-31 14:56 | Communication Note ---
Date of Service: December 31, 2023 Pt was discharged before she was seen by the hospitalist service on 12/30/23. Would recommend close PCP followup after discharge for her leukopenia and thrombocytopenia. Peripheral smear noting pancytopenia. Recommend optimizing nutritional status per Hematology. Per Hematology: At this point no other intervention is necessary. She has mild hematological abnormalities, which do not warrant invasive testing such as bone marrow biopsy. PCP follow up as above.
[2024-01-02 17:48] LABS: Babesia microti DNA Not Detected (Not Detected); Borrelia miyamotoi DNA Not Detected (Not Detected); Borrelia miyamotoi IgG Ab 0.27 INDEX; Borrelia miyamotoi IgM Ab 0.23 INDEX; Borrelia miyamotoi Source WHOLE BLOOD; Q Fever IgG, Phase I NEGATIVE; Q Fever Phase I IgM Antibody NEGATIVE; Q Fever Phase II IgG Antibody NEGATIVE; Q Fever Phase II IgM Antibody NEGATIVE; R. typhi IgG Ab NOT DETECTED; R. typhi IgM Ab NOT DETECTED; RMSF IgG Ab NOT DETECTED; RMSF IgM Ab NOT DETECTED
== END 2023-12-30 10:05 | disposition home or self-care (01) | DRG 885 ==
LOC: ED 11:49 → 3S 17:01 → SUATTDRO 17:01 → 3S 17:28